=== PATIENT | female | born 1950 | race Caucasian/White ===

== ENCOUNTER 2019-06-26 15:40 | Emergency (ER) | payer OTHER ==
[~2019-06-26] VITALS: Ht 154.9 cm; Wt 117.9 kg
[2019-06-26 16:57] LABS: Basophils # (auto) 0 uL; Basophils % (auto) 0.7 % (0.0-2.0); Eosinophils # (auto) 0 uL; Eosinophils % (auto) 0.4 % (0.0-7.0); Hematocrit 42.5 % (36.0-46.0); Hemoglobin 13.7 g/dL (12.2-16.2); Lymphocytes # (auto) 1.3 uL; Lymphocytes % (auto) 24.9 % (10.0-50.0); Mean Corpuscular Hemoglobin 27.6 pg (28.0-32.0); Mean Corpuscular Hgb Conc. 32.3 g/dL (32.0-36.0); Mean Corpuscular Volume 85.5 fL (80.0-100.0); Monocytes # (auto) 0.8 uL; Monocytes % (auto) 14.2 % (0.0-12.0); Neutrophils # (auto) 3.2 uL; Neutrophils % (auto) 59.8 % (37.0-80.0); Nucleated Red Blood Cells % 0.1 %; Platelet Count (auto) 219 10^3/uL (140-450); Red Blood Cells 4.97 10^6/uL (4.0-5.20); Red Cell Distribution Width 17.5 % (11.8-14.3); White Blood Cell 5.4 10^3/uL (4.4-10.8)
[2019-06-26 17:17] LABS: Albumin 3.4 g/dL (3.4-5.0); Anion Gap 8 (5-15); Blood Urea Nitrogen 32 mg/dL (7-18); Calcium 9.8 mg/dL (8.5-10.1); Carbon Dioxide 27 mmol/L (21-32); Chloride 106 mmol/L (98-107); Glucose 136 mg/dL (74-106); Potassium 4.2 mmol/L (3.5-5.1); Sodium 141 mmol/L (136-145)
[2019-06-26 17:23] LABS: Alanine Aminotransferase 49 U/L (13-56); Alkaline Phosphatase 72 U/L (45-117); Aspartate Aminotransferase 53 U/L (15-37); BUN/Creatinine Ratio 22.2; Bilirubin, Total 0.3 mg/dL (0.2-1.0); GFR African American 47 mL/min; GFR Non-African American 39 mL/min; Total Protein 7.6 g/dL (6.4-8.2)
[2019-06-26 20:00] VITALS: BP 133/63
== END 2019-06-26 21:12 | disposition home or self-care (01) ==
LOC: ER 15:40
DX: J20.9 Acute bronchitis, unspecified (principal); E11.9 Type 2 diabetes mellitus without complications; I10 Essential (primary) hypertension
CPT/HCPCS: 36415; 71046; 80053; 84484; 85025; 85379; 87804; 93005

== ENCOUNTER 2024-09-03 13:20 | Inpatient (IN) | payer OTHER ==
[~2024-09-03] VITALS: Ht 154.9 cm; Wt 93.3 kg
--- NOTE | 2024-09-03 13:34 | ECG ---
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
[2024-09-03 14:26] LABS: Basophils # (auto) 0 10 ^3/uL (0-0.2); Basophils % (auto) 0.2 % (0.0-2.0); Eosinophils # (auto) 0.2 10 ^3/uL (0-0.8); Eosinophils % (auto) 1.7 % (0.0-7.0); Hematocrit 39.8 % (36.0-46.0); Hemoglobin 12.9 g/dL (12.2-16.2); Lymphocytes # (auto) 1.4 10 ^3/uL (0.4-5.4); Lymphocytes % (auto) 11.8 % (10.0-50.0); Mean Corpuscular Hemoglobin 28.5 pg (28.0-32.0); Mean Corpuscular Hgb Conc. 32.4 g/dL (32.0-36.0); Mean Corpuscular Volume 88.1 fL (80.0-100.0); Monocytes # (auto) 0.9 10 ^3/uL (0-1.3); Monocytes % (auto) 7.5 % (0.0-12.0); Neutrophils # (auto) 9.6 10 ^3/uL (1.6-8.6); Neutrophils % (auto) 78.8 % (37.0-80.0); Nucleated Red Blood Cells % 0.1 %; Platelet Count (auto) 276 10^3/uL (140-450); Red Blood Cells 4.51 10^6/uL (4.0-5.20); Red Cell Distribution Width 14.9 % (11.8-14.3); White Blood Cell 12.2 10^3/uL (4.4-10.8)
[2024-09-03 14:28] LABS: Potassium 4.5 mmol/L (3.5-5.1); Sodium 145 mmol/L (136-145)
[2024-09-03 14:29] LABS: Anion Gap 10 (5-15); Carbon Dioxide 23 mmol/L (20-31)
[2024-09-03 14:34] LABS: BUN/Creatinine Ratio 20.1 (10.0-20.0); Calcium 10.6 mg/dL (8.7-10.4); Chloride 112 mmol/L (98-107)
[2024-09-03 14:36] LABS: Blood Urea Nitrogen 27 mg/dL (9-23); Glucose 59 mg/dL (74-106)
--- NOTE | 2024-09-03 14:42 | DVH ---
INDICATION: cp TECHNIQUE: Frontal view of the chest. COMPARISON: None FINDINGS: . The heart and mediastinal contours are grossly unremarkable. There is no evidence of pleural disea se. The lungs are clear. The bony structures of the chest are intact without fracture. IMPRESSION: 1. No evidence of acute disease.
[2024-09-03 14:56] LABS: Urine Bacteria FEW /hpf (None Seen); Urine Blood Negative /uL (Negative); Urine Clarity Clear (Clear); Urine Color Colorless (Yellow); Urine Hyaline Cast FEW /lpf (0 - 2); Urine Protein, UAD Negative (Negative); Urine Specific Gravity 1.007 (1.001-1.035); Urine Squamous Epithelial Cell FEW /hpf (<5); Urine Urobilinogen Normal (Negative); Urine WBC 2 /HPF (0-5); Urine pH 6.5 (5.0-9.0)
--- NOTE | 2024-09-03 16:21 | ED.PDOC ---
History of Present Illness HPI Comments 74-year-old female brought in by family complaining of chest pain since around 11:00 a.m. today. Patient also notes that her blood pressure has been elevated despite taking her blood pressure medications. She states her blood pressure was 204 systolic today. She denies any shortness of breath, nausea, vomiting, diaphoresis, however she states that she does have chronic bilateral lower extremity edema which appears somewhat worse today. Vitals remarkable for BP 182/74 Exam remarkable for lower extremity edema Rhythm strip independently interpreted by me: Chief Complaint: Chest Pain Time Seen by MD: 15:30 Primary Care Provider: EMILIA Reviewed Notes: Nurses Notes, Medications, Allergies Allergies: Coded Allergies: Cephalosporins (Verified Allergy, Unknown, 09/03/24) Ciprofloxacin (Verified Allergy, Unknown, 09/03/24) Diphenhydramine (Verified Allergy, Unknown, 09/03/24) IV Iodine (Verified Allergy, Unknown, 09/03/24) IV Levofloxacin (Verified Allergy, Unknown, 09/03/24) Penicillins (Verified Allergy, Unknown, 09/03/24) Information Source: Patient Mode of Arrival: Ambulatory Severity: Moderate Timing: Hours Duration: Since onset, Hours Prehospital treatment: None Past Medical History PAST MEDICAL HISTORY: Cancer (Vaginal Cuff/Taking Chemo), DM, HTN Past Medical History (Other): 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 Surgical History: Hysterectomy (Total) Surgical History (Other): Cataract 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 History Family History Family History: Reviewed,noncontributory to illness Social History Smoker: Non-Smoker Alcohol: Denies ETOH Use Drugs: Denies Drug Use Lives In: Home Constitutional: reports: others (high Blood Pressure); denies: chills, diaphoresis, fatigue, fever, malaise, sweats, weakness EENTM: denies: blurred vision, double vision, ear bleeding, ear discharge, ear drainage, ear pain, ear ringing, eye pain, eye redness, hearing loss, mouth pain, mouth swelling, nasal discharge, nose bleeding, nose congestion, nose pain, photophobia, tearing, throat pain, throat swelling, voice changes, others Respiratory: denies: cough, hemoptysis, orthopnea, SOB at rest, shortness of breath, SOB with excertion, stridor, wheezing, others Cardiovascular: reports: edema; denies: chest pain, dizzy spells, diaphoresis, Dyspnea on exertion, irregular heart beat, left arm pain, lightheadedness, palpitations, PND, syncope, others Gastrointestinal: denies: abdomen distended, abdominal pain, blood streaked bowels, constipated, diarrhea, dysphagia, difficulty swallowing, hematemesis, melena, nausea, poor appetite, poor fluid intake, rectal bleeding, rectal pain, vomiting, others Genitourinary: denies: abnormal vagina bleeding, burning, dyspareunia, dysuria, flank pain, frequency, hematuria, incontinence, pain, , vagina discharge, urgency, others Neurological: denies: dizziness, fainting, headache, left sided numbness, left sided weakness, numbness, paresthesia, pre-existing deficit, right sided numbness, right sided weakness, seizure, speech problems, tingling, tremors, weakness, others Musculoskeletal: denies: back pain, gout, joint pain, joint swelling, muscle pain, muscle stiffness, neck pain, others Integumetry: denies: bruises, change in color, change in hair/nails, dryness, laceration, lesions, lumps, rash, wounds, others Allergic/Immunocompromised: denies: Difficulty Healing, Frequent Infections, Hives, Itching, others Hematologic/Lymphatic: denies: anemia, blood clots, easy bleeding, easy bruising, swollen glands, others Endocrine: denies: excessive hunger, excessive sweating, excessive thirst, excessive urination, flushing, intolerance to cold, intolerance to heat, unexplained weight gain, unexplained weight loss, others Psychiatric: denies: anxiety, bipolar disorder, depression, hopeless, panic disorder, schizophrenia, sleepless, suicidal, others All Other Systems: Reviewed and Negative Physical Exam General Appearance: No Apparent Distress, Obese HEENT: Other (Pupils and face symmetric. Moist mucous membranes.) Neck: Full Range of Motion, Normal Inspection Respiratory: Decreased Breath Sounds, No Accessory Muscle Use, No Respiratory Distress Cardiovascular: No JVD, Regular Rate/Rhythm Breast Exam: Deferred Gastrointestinal: Non Tender, Soft Genitalia: Deferred Pelvic: Deferred Rectal: Deferred Extremities: Leg edema, Normal range of motion, Pedal edema Neurologic: Alert (Oriented x4), Normal Affect, Normal Mood, Other (Moves all extremities) Cerebellar Function: NOT DONE Reflexes: NOT DONE Skin: Dry, Normal Color, Warm Lymphatic: NOT DONE Was a procedure done? Was a procedure done?: No EKG EKG : Comments Sinus rhythm, rate 75, normal intervals, left axis deviation, possible old inferior infarct, nonspecific T change. Differential Dx Considerations may include: ACS, NV, PE, chest wall pain, anxiety, pneumonia or respiratory infection, among others X-Ray, Labs, Meds, VS Vital Signs Date Time Temp Pulse Resp B/P (MAP) Pulse Ox O2 Delivery O2 Flow Rate FiO2 09/03/24 20:29 199/90 09/03/24 19:17 75 18 98 Room Air* 0 21 09/03/24 19:17 72 16 200/88 (125) 98 09/03/24 18:59 198/96 09/03/24 17:05 189/84 09/03/24 14:28 75 09/03/24 13:28 71 09/03/24 13:26 97.5 70 18 182/74 (110) 98 97.5 Lab Test 09/03/24 20:44 09/03/24 14:38 09/03/24 13:26 Range/Units POC Glucose 62 L 70-106 mg/dl Urine Color Colorless Yellow Urine Clarity Clear Clear Urine pH 6.5 5.0-9.0 Urine Specific [place] 1.007 1.001-1.035 Urine Protein Negative Negative Urine Ketones Negative Negative Urine Blood Negative Negative /uL Urine Nitrite Negative Negative Urine Bilirubin Negative Negative Urine Urobilinogen Normal Negative mg/dL Urine Leukocyte Esterase Trace Negative /uL Urine RBC 3 0 - 4 /hpf Urine Microscopic WBC 2 0-5 /HPF Urine Squamous Epithelial Cells Few <5 /hpf Urine Bacteria Few H None Seen /hpf Urine Hyaline Casts Few 0 - 2 /lpf Urine Glucose Normal Normal mg/dL White Blood Count 12.2 H 4.4-10.8 10^3/uL Red Blood Count 4.51 4.0-5.20 10^6/uL Hemoglobin 12.9 12.2-16.2 g/dL Hematocrit 39.8 36.0-46.0 % Mean Corpuscular Volume 88.1 80.0-100.0 fL Mean Corpuscular Hemoglobin 28.5 28.0-32.0 pg Mean Corpuscular Hemoglobin Concent 32.4 32.0-36.0 g/dL Red Cell Distribution Width 14.9 H 11.8-14.3 % Platelet Count 276 140-450 10^3/uL Mean Platelet Volume 8.2 6.9-10.8 fL Neutrophils (%) (Auto) 78.8 37.0-80.0 % Lymphocytes (%) (Auto) 11.8 10.0-50.0 % Monocytes (%) (Auto) 7.5 0.0-12.0 % Eosinophils (%) (Auto) 1.7 0.0-7.0 % Basophils (%) (Auto) 0.2 0.0-2.0 % Neutrophils # (Auto) 9.6 H 1.6-8.6 10 ^3/uL Lymphocytes # (Auto) 1.4 0.4-5.4 10 ^3/uL Monocytes # (Auto) 0.9 0-1.3 10 ^3/uL Eosinophils # (Auto) 0.2 0-0.8 10 ^3/uL Basophils # (Auto) 0 0-0.2 10 ^3/uL Nucleated Red Blood Cells 0.1 % D-Dimer, Quantitative 0.81 H 0.0-0.49 mg/L FEU Sodium Level 145 136-145 mmol/L Potassium Level 4.5 3.5-5.1 mmol/L Chloride Level 112 H 98-107 mmol/L Carbon Dioxide Level 23 20-31 mmol/L Anion Gap 10 5-15 Blood Urea Nitrogen 27 H 9-23 mg/dL Creatinine 1.34 H 0.550-1.02 mg/dL Glomerular Filtration Rate Calc 42 >90 mL/min BUN/Creatinine Ratio 20.1 H 10.0-20.0 Serum Glucose 59 L 74-106 mg/dL Calcium Level 10.6 H 8.7-10.4 mg/dL Troponin I High Sensitivity 4 </=34 ng/L B-Type Natriuretic Peptide 134.20 0-100 pg/mL Current Medications Medications (Trade) Dose Ordered Sig/Luigi Route Start Time Stop Time Status Last Admin Aspirin 325 mg ONCE ONCE PO 09/03/24 15:30 09/03/24 15:31 DC 09/03/24 17:05 Nitroglycerin (Nitrodur 0.2MG/ Hr) 1 patch ONCE ONCE TD 09/03/24 15:30 09/03/24 15:31 DC 09/03/24 17:05 Hydralazine HCl (Apresoline Injection) 10 mg ONCE ONCE IV 09/03/24 19:30 09/03/24 20:00 DC 09/03/24 20:29 PROCEDURE(s): BLDVT - BiLat Lower DVT REASON: ble edema ORDER NUMBER(s): [id number], ACCESSION NUMBER(s): [id number] Bilateral lower extremity venous duplex Clinical History: ble edema Comparison: None Technique: Duplex Doppler evaluation of the deep venous systems of both lower extremities from the common femoral veins to the popliteal veins including color Doppler and spectral/pulsed waveform analysis was performed. Findings: RIGHT SIDE: The common femoral vein demonstrates appropriate compressibility and waveform variability. There is compressibility/patency of the great saphenous vein at the proximal thigh. The femoral vein demonstrates appropriate compressibility and waveform variability. The deep femoral vein demonstrates appropriate compressibility and waveform variability. The popliteal vein demonstrates appropriate compressibility and waveform variability. There is color flow at the tibioperoneal trunk and in the posterior tibial vein. LEFT SIDE: The common femoral vein demonstrates appropriate compressibility and waveform variability. There is compressibility/patency of the great saphenous vein at the proximal thigh. The femoral vein demonstrates appropriate compressibility and waveform variability. The deep femoral vein demonstrates appropriate compressibility and waveform variability. The popliteal vein demonstrates appropriate compressibility and waveform va riability. There is color flow at the tibioperoneal trunk and in the posterior tibial vein. Impression: 1. No right or left femoropopliteal venous thrombosis. EDURE(s): CXRP - CHEST PORTABLE REASON: cp ORDER NUMBER(s): [id number], ACCESSION NUMBER(s): [id number] INDICATION: cp TECHNIQUE: Frontal view of the chest. COMPARISON: None FINDINGS: . The heart and mediastinal contours are grossly unremarkable. There is no evidence of pleural disease. The lungs are clear. The bony structures of the chest are intact without fracture. IMPRESSION: 1. No evidence of acute disease. X-Ray, Labs, Meds, VS Comment 74-year-old female brought in by family complaining of chest pain since around 11:00 a.m. today. Patient also notes that her blood pressure has been elevated despite taking her blood pressure medications. She states her blood pressure was 204 systolic today. She denies any shortness of breath, nausea, vomiting, diaphoresis, however she states that she does have chronic bilateral lower extremity edema which appears somewhat worse today. Vitals remarkable for BP 182/74 Exam remarkable for lower extremity edema Rhythm strip independently interpreted by me: Sinus rhythm, rate 75, no ectopy. Chest x-ray IMPRESSION: 1. No evidence of acute disease. Bilateral lower extremity ultrasound: Impression: 1. No right or left femoropopliteal venous thrombosis. CBC remarkable for WBC 12.2, metabolic panel remarkable for BUN 27, creatinine 1.34, glucose 59, BNP 134.2, troponin negative x2, D-dimer 0.81 Patient treated with the following in the ED: Aspirin 325 mg p.o., nitro patch transdermal, hydralazine 10 mg IV On re-evaluation after aspirin and nitro, the patient stated symptoms are improving, however blood pressure actually increased to 200/88 Differential includes ACS and PE. Patient states she is allergic to iodinated contrast, so plan is to admit the patient for blood pressure control and V/Q scan to rule out PE. Case discussed with SUKHDEV Palmer, who will evaluate and admit the patient. Time of 1ST Reevaluation: 16:00 Reevaluation 1ST: Unchanged Patient Education/Counseling: Diagnosis, Treatment, Prognosis Family Education/Counseling: No Family Present Departure 1 Departure Time of Disposition: 19:38 Impression: Primary Impression: Chest pain with high risk for cardiac etiology Additional Impressions: Hypertensive urgency Elevated d-dimer Disposition: 09 ADMITTED INPATIENT Admit to: Tele Condition: Guarded Critical Care Note Critical Care Time?: No Stability Stability form required: No Heart Score Heart Score: Heart Score Response (Comments) Value History Moderate Suspicious 1 EKG Repolarization Disturb 1 Age >65 2 Risk Factors 1 or 2 risk factors 1 Troponin Normal limit 0 Total 5 I personally scribed for INDRA STEPHENS MD ([email or web address]) on 09/03/24 at 16:21. Electronically submitted by Fitz Marie ([email or web address]). I personally scribed for INDRA STEPHENS MD ([email or web address]) on 09/03/24 at 17:27. Electronically submitted by Fitz Marie ([email or web address]). INDRA STEPHENS MD Sep 03, 2024 16:21
--- NOTE | 2024-09-03 16:31 | DVH ---
Bilateral lower extremity venous duplex Clinical History: ble edema Comparison: None Technique: Duplex Doppler evaluation of the deep venous systems of both lower extremities from the co mmon femoral veins to the popliteal veins including color Doppler and spectral/pulsed waveform analys is was performed. Findings: RIGHT SIDE: The common femoral vein demonstrates appropriate compressibility and waveform variability. There is compressibility/patency of the great saphenous vein at the proximal thigh. The femoral vein demonstrates appropriate compressibility and waveform variability. The deep femoral vein demonstrates appropriate compressibility and waveform variability. The popliteal vein demonstrates appropriate compressibility and waveform variability. There is color flow at the tibioperoneal trunk and in the posterior tibial vein. LEFT SIDE: The common femoral vein demonstrates appropriate compressibility and waveform variability. There is compressibility/patency of the great saphenous vein at the proximal thigh. The femoral vein demonstrates appropriate compressibility and waveform variability. The deep femoral vein demonstrates appropriate compressibility and waveform variability. The popliteal vein demonstrates appropriate compressibility and waveform variability. There is color flow at the tibioperoneal trunk and in the posterior tibial vein. Impression: 1. No right or left femoropopliteal venous thrombosis.
[2024-09-03] MEDS: ASPirin 325 MG TAB PO ONE (17:05)
[2024-09-03] MEDS: NITROGLYCERIN 0.2MG/HR TOPICAL PATCH TD ONE (17:05)
[2024-09-03 19:17] VITALS: PULSE 75; RESP 18; O2SAT 98
[2024-09-03] MEDS: hydrALAZINE HCL 20 MG/ML VL ONE (20:29)
[2024-09-03] MEDS: hydrALAZINE HCL 20 MG/ML VL IV ONE (20:29)
[2024-09-03] MEDS ORDERED: HYDROcodone-ACET 5/325MG TAB PO PRN (22:30)
[2024-09-03] MEDS ORDERED: MORPHINE SULFATE INJ 2 MG/ml SYRG IV PRN (22:30)
[2024-09-03] MEDS ORDERED: DEXTROSE (50%) 50ML SYRG IV PRN (22:30)
[2024-09-03] MEDS ORDERED: ONDANSETRON HCL 4 MG/2 ML VIAL IV PRN (22:30)
[2024-09-03] MEDS ORDERED: NITROGLYCERIN 0.4 MG SL TAB SL PRN (22:30)
[2024-09-03] MEDS ORDERED: cloNIDine HCL 0.1 MG TAB PO PRN (22:30)
[2024-09-03 23:14] VITALS: PULSE 78; RESP 18; O2SAT 98
[2024-09-04] VITALS (9 sets, daily range): BP systolic 143–176; BP diastolic 60–79; PULSE 77–96; RESP 16–18; TEMP 97.6–98.6; O2SAT 92–98
--- NOTE | 2024-09-04 03:12 | DVHHP2 ---
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 Patient endorses leg swelling began after she started chemotherapy. There are no associated factors with chest pain. On arrival to the emergency department patient is noted to be hypertensive with blood pressure as high as 200/88. Patient endorses that she was recently taken off hydrochlorothiazide due to bladder urgency, and her blood pressure has been difficult to manage. During the emergency department evaluation D-dimer is elevated at 0.81. However is unable to complete a CT angio of the chest rule out PE due to the patient's allergy to contrast iodine. At this time patient denies fevers, chills, shortness of breath, nausea, vomiting. Cardiovascular: HTN Heme/Onc: Cancer Endocrine: Diabetes Smoke: No ALCOHOL: none Drugs: None Lives: with Family Review of Systems Constitutional: No: Fever, Chills, Sweats, Weakness, Malaise, Other Eyes: No: Pain, Vision change, Conjunctivae inflammation, Eyelid inflammation, Other, Redness ENT: No: Ear pain, Ear discharge, Nose pain, Nose discharge, Nose congestion, Mouth pain, Mouth swelling, Throat pain, Throat swelling, Other Respiratory: No: Cough, Dry, Shortness of breath, SOB with excertion, Wheezing, Hemoptysis, Pleuritic Pain, Sputum, Wheezing, Other Cardiovascular: Chest Pain, Edema; No: Palpitations, Orthopnea, Paroxysmal Noc. Dyspnea, Lt Headedness, Other Gastrointestinal: No: Nausea, Vomiting, Abdominal Pain, Diarrhea, Constipation, Melena, Hematochezia, Other Genitourinary: No Dysuria, No Frequency, No Incontinence, No Hematuria, No Retention, No Other Musculoskeletal: No: other, neck pain, shoulder pain, arm pain, back pain, hand pain, leg pain, foot pain Skin: No: Rash, Lesions, Jaundice, Bruising, Other Neurological: No: Weakness, Numbness, Incoordination, Change in speech, Confusion, Seizures, Other Allergies: Coded Allergies: Ceftriaxone (Verified Allergy, Unknown, 09/04/24) Cephalosporins (Verified Allergy, Unknown, 09/03/24) Ciprofloxacin (Verified Allergy, Unknown, 09/03/24) Diphenhydramine (Verified Allergy, Unknown, 09/03/24) IV Iodine (Verified Allergy, Unknown, 09/03/24) IV Levofloxacin (Verified Allergy, Unknown, 09/03/24) Penicillins (Verified Allergy, Unknown, 09/03/24) Uncoded Allergies: LUBRICATE (Adverse Reaction, Severe, 09/03/24) ALLERGY TO ULTRASOUND LUBRICATING JELLY Medications Current Medications Medications Dose Ordered Sig/Luigi Route Start Time Stop Time Status Last Admin Dose Admin Acetaminophen 650 mg Q6HP PRN PO 09/03/24 22:30 Acetaminophen/ Hydrocodone Bitart 1 tab Q4HP PRN PO 09/03/24 22:30 Ondansetron HCl 4 mg Q4HP PRN IV 09/03/24 22:30 Enoxaparin Sodium 40 mg DAILY SC 09/04/24 10:00 Nitroglycerin 0.4 mg Q5MINP PRN SL 09/03/24 22:30 Morphine Sulfate 2 mg Q30M PRN IV 09/03/24 22:30 Clonidine HCl 0.1 mg TIDPRN PRN PO 09/03/24 22:30 Hydralazine HCl 10 mg Q4HPRN PRN IV 09/03/24 22:30 Aspirin 81 mg DAILY PO 09/04/24 10:00 Atorvastatin Calcium 10 mg HS PO 09/04/24 22:00 Diagnostic Test (Pha) 1 strip ACHS 09/04/24 07:00 Insulin Human Regular ACHS SC 09/04/24 07:00 Dextrose 50 ml UD PRN IV 09/03/24 22:30 Metoprolol Tartrate 25 mg BID PO 09/04/24 10:00 Exam Vital Signs Vital Signs Date Time Temp Pulse Resp B/P (MAP) Pulse Ox O2 Delivery O2 Flow Rate FiO2 09/04/24 00:00 75 09/03/24 23:14 98.2 18 166/84 (111) 98 98.2 09/03/24 23:14 Room Air* 0 21 General Appearance: Alert, Oriented X3, Cooperative, mild distress HEENT: Atraumatic, PERRLA, EOMI Respiratory: Clear to auscultation, Normal air movement Cardiovascular: Regular rate, Normal S1, Normal S2 Abdominal: Normal bowel sounds, Soft, No tenderness Extremities: No clubbing, No cyanosis, Other (BLE edema) Neuro: Normal speech Psych/Mental Status: Mental status NL, Mood NL Labs/Xrays Labs Test 09/03/24 23:19 09/03/24 14:38 09/03/24 13:26 Range/Units POC Glucose 79 70-106 mg/dl Urine Color Colorless Yellow Urine Clarity Clear Clear Urine pH 6.5 5.0-9.0 Urine Specific [place] 1.007 1.001-1.035 Urine Protein Negative Negative Urine Ketones Negative Negative Urine Blood Negative Negative /uL Urine Nitrite Negative Negative Urine Bilirubin Negative Negative Urine Urobilinogen Normal Negative mg/dL Urine Leukocyte Esterase Trace Negative /uL Urine RBC 3 0 - 4 /hpf Urine Microscopic WBC 2 0-5 /HPF Urine Squamous Epithelial Cells Few <5 /hpf Urine Bacteria Few H None Seen /hpf Urine Hyaline Casts Few 0 - 2 /lpf Urine Glucose Normal Normal mg/dL White Blood Count 12.2 H 4.4-10.8 10^3/uL Red Blood Count 4.51 4.0-5.20 10^6/uL Hemoglobin 12.9 12.2-16.2 g/dL Hematocrit 39.8 36.0-46.0 % Mean Corpuscular Volume 88.1 80.0-100.0 fL Mean Corpuscular Hemoglobin 28.5 28.0-32.0 pg Mean Corpuscular Hemoglobin Concent 32.4 32.0-36.0 g/dL Red Cell Distribution Width 14.9 H 11.8-14.3 % Platelet Count 276 140-450 10^3/uL Mean Platelet Volume 8.2 6.9-10.8 fL Neutrophils (%) (Auto) 78.8 37.0-80.0 % Lymphocytes (%) (Auto) 11.8 10.0-50.0 % Monocytes (%) (Auto) 7.5 0.0-12.0 % Eosinophils (%) (Auto) 1.7 0.0-7.0 % Basophils (%) (Auto) 0.2 0.0-2.0 % Neutrophils # (Auto) 9.6 H 1.6-8.6 10 ^3/uL Lymphocytes # (Auto) 1.4 0.4-5.4 10 ^3/uL Monocytes # (Auto) 0.9 0-1.3 10 ^3/uL Eosinophils # (Auto) 0.2 0-0.8 10 ^3/uL Basophils # (Auto) 0 0-0.2 10 ^3/uL Nucleated Red Blood Cells 0.1 % D-Dimer, Quantitative 0.81 H 0.0-0.49 mg/L FEU Sodium Level 145 136-145 mmol/L Potassium Level 4.5 3.5-5.1 mmol/L Chloride Level 112 H 98-107 mmol/L Carbon Dioxide Level 23 20-31 mmol/L Anion Gap 10 5-15 Blood Urea Nitrogen 27 H 9-23 mg/dL Creatinine 1.34 H 0.550-1.02 mg/dL Glomerular Filtration Rate Calc 42 >90 mL/min BUN/Creatinine Ratio 20.1 H 10.0-20.0 Serum Glucose 59 L 74-106 mg/dL Calcium Level 10.6 H 8.7-10.4 mg/dL Troponin I High Sensitivity 4 </=34 ng/L B-Type Natriuretic Peptide 134.20 0-100 pg/mL Assessment/Plan Assessment/Plan Chest pain Uncontrolled hypertension Elevated D dimer DM Hx Vaginal Cancer under chemo and radiation therapy Plan Admit to telemetry Consult cardiology. Echocardiogram. Continue home medication. As needed and hypertensive for optimal BP management. repeat troponin. V/Q scan due to iodine allergy to r/o PE Blood glucose check with regular insulin lighting scale coverage. Supportive care. Patient to follow up with outpatient oncology for continue treatment. GI ppx protonix / DVT ppx lovenox Plan discussed with: Patient My Orders Orders - GRISELDA BOONE NP Procedure Category Date Status Time Admit ADMIT 09/03/24 Transmitted 22:22 Code Status CODE 09/03/24 Transmitted 22:22 Vital Signs DONNA 09/03/24 In Process 22:22 Review Orders With DONNA 09/03/24 In Process Adm. 22:22 Encourage Activity As DONNA 09/03/24 In Process Tolerate 22:22 Consistent DIET 09/04/24 Transmitted Carb(Ccho)Diabetes Breakfast Oxygen By Face Mask RT 09/03/24 Transmitted 22:22 Acetaminophen Tablet PHA 09/03/24 In Process (Tylenol Tablet) 22:30 Notify Of Changes DONNA 09/03/24 In Process From Base 22:22 Advance Directive DONNA 09/03/24 In Process 22:22 Echo 2d Mode Cardiac US 09/03/24 Logged DOP 22:22 Basic Metabolic Panel LAB 09/04/24 Logged 05:00 Basic Metabolic Panel LAB 09/05/24 Verified 05:00 Basic Metabolic Panel LAB 09/06/24 Verified 05:00 Basic Metabolic Panel LAB 09/07/24 Verified 05:00 Basic Metabolic Panel LAB 09/08/24 Verified 05:00 Complete Blood Count LAB 09/04/24 Logged 05:00 Complete Blood Count LAB 09/05/24 Verified 05:00 Complete Blood Count LAB 09/06/24 Verified 05:00 Complete Blood Count LAB 09/07/24 Verified 05:00 Complete Blood Count LAB 09/08/24 Verified 05:00 Patient Condition ORDERS 09/03/24 Transmitted 22:22 Allergies DONNA 09/03/24 In Process 22:22 Hydrocodone-Acet PHA 09/03/24 In Process 5/325mg Tab ([place] 22:30 Ondansetron Hcl PHA 09/03/24 In Process (Zofran) 22:30 Enoxaparin Sodium PHA 09/04/24 In Process (Lovenox) 10:00 Sequential DONNA 09/03/24 In Process Compression Device Nitroglycerin PHA 09/03/24 In Process Sublingual (Ntrostat 22:30 Morphine Sulfate PHA 09/03/24 In Process Injection 22:30 Stat Ekg For Chest DONNA 09/03/24 In Process Pain 22:22 Notify Of Changes DONNA 09/03/24 In Process From Base 22:22 Rotoprinter For DONNA 09/03/24 In Process 24 Hours 22:22 Emergency Dysrhythmia DONNA 09/03/24 In Process Protocol 22:22 Rhythm Strips Once DONNA 09/03/24 In Process Every Shift 22:22 Oxygen By Nasal RT 09/03/24 Transmitted Cannula 22:22 Clonidine Hcl Tablet PHA 09/03/24 In Process (Catapres Tablet) 22:30 Hydralazine Injection PHA 09/03/24 In Process (Apresoline Inject 22:30 * Cardiology Consult CONS 09/03/24 Transmitted 22:22 Aspirin Tablet PHA 09/04/24 In Process 10:00 Atorvastatin (Lipitor) PHA 09/04/24 In Process 22:00 Glucose Blood PHA 09/04/24 In Process (Accu-Chek Comfort 07:00 Insulin R (Human) PHA 09/04/24 In Process (Insulin R) 07:00 Dextrose 50% Syringe PHA 09/03/24 In Process 22:30 Metoprolol Tartrate PHA 09/04/24 In Process Tablet (Lopressor Ta 10:00 Date of Service: September 04, 2024 Billing Provider: JOSE JUNG MD Common Visit Codes: NOT BILLABLE (At the chest pain with elevated) JOSE JUNG MD 09/04/24 1519: Review of Systems Allergies: Coded Allergies: Ceftriaxone (Verified Allergy, Unknown, 09/04/24) Cephalosporins (Verified Allergy, Unknown, 09/03/24) Ciprofloxacin (Verified Allergy, Unknown, 09/03/24) Diphenhydramine (Verified Allergy, Unknown, 09/03/24) IV Iodine (Verified Allergy, Unknown, 09/03/24) IV Levofloxacin (Verified Allergy, Unknown, 09/03/24) Penicillins (Verified Allergy, Unknown, 09/03/24) Uncoded Allergies: LUBRICATE (Adverse Reaction, Severe, 09/03/24) ALLERGY TO ULTRASOUND LUBRICATING JELLY Assessment/Plan Assessment/Plan Patient's chart is reviewed and discussed with the nurse practitioner. Patient is evaluated by Cardiology today. I agree with the nurse practitioner's evaluation, documentation, assessment and care plan as outlined. GRISELDA BOONE NP September 04, 2024 03:12 JOSE JUNG MD September 04, 2024 15:19
[2024-09-04] MEDS: InsuLIN REG 1unit/0.01ml Soln (100units/ml) SC SCH (05:57)
[2024-09-04] MEDS: ACCU-CHEK COMFORT CURVE STRIP VI SCH (05:58)
[2024-09-04] MEDS: ACETAMINOPHEN 325 MG TAB PO PRN (06:05)
[2024-09-04] MEDS: hydrALAZINE HCL 20 MG/ML VL IV PRN (06:47)
[2024-09-04] MEDS ORDERED: GLIP5TAB21 PO (07:36)
[2024-09-04] MEDS ORDERED: SEMA2INJ3 SC (07:36)
[2024-09-04 08:36] LABS: Basophils # (auto) 0 10 ^3/uL (0-0.2); Basophils % (auto) 0.1 % (0.0-2.0); Eosinophils # (auto) 0.1 10 ^3/uL (0-0.8); Eosinophils % (auto) 1.5 % (0.0-7.0); Hematocrit 36.4 % (36.0-46.0); Hemoglobin 12.2 g/dL (12.2-16.2); Mean Corpuscular Hemoglobin 29.2 pg (28.0-32.0); Mean Corpuscular Hgb Conc. 33.4 g/dL (32.0-36.0); Mean Corpuscular Volume 87.2 fL (80.0-100.0); Monocytes # (auto) 0.9 10 ^3/uL (0-1.3); Monocytes % (auto) 8.6 % (0.0-12.0); Neutrophils % (auto) 79.8 % (37.0-80.0); Platelet Count (auto) 240 10^3/uL (140-450); Red Blood Cells 4.18 10^6/uL (4.0-5.20); Red Cell Distribution Width 14.9 % (11.8-14.3)
[2024-09-04 08:42] LABS: Potassium 4.1 mmol/L (3.5-5.1)
[2024-09-04 08:43] LABS: Anion Gap 6 (5-15); Carbon Dioxide 28 mmol/L (20-31)
[2024-09-04 08:44] LABS: Calcium 10.4 mg/dL (8.7-10.4)
[2024-09-04 08:45] LABS: Chloride 112 mmol/L (98-107); Sodium 146 mmol/L (136-145)
[2024-09-04 08:48] LABS: BUN/Creatinine Ratio 17.3 (10.0-20.0); Blood Urea Nitrogen 23 mg/dL (9-23)
[2024-09-04 08:51] LABS: Glucose 110 mg/dL (74-106)
[2024-09-04] MEDS: ENOXAPARIN SOD 40 MG/0.4 ML SYRINGE SC SCH (09:25)
[2024-09-04] MEDS: METOPROLOL TARTRATE 25 MG TAB PO SCH (09:25)
[2024-09-04] MEDS: ASPirin 81 mg TAB PO SCH (09:25)
--- NOTE | 2024-09-04 11:54 | DVH ---
NUCLEAR MEDICINE VENTILATION/PERFUSION LUNG SCAN. INDICATION: PULMONARY EMBOLISM COMPARISON: None TECHNIQUE: Following intravenous demonstration of 6 millicuries of technetium 99m MAA, and inhalati on of 40 mCi of Xe 133 scintigrams were obtained in multiple projections of the lungs. FINDINGS: There is normal uptake of radionuclide on both the ventilation and perfusion portions of the examinat ion. No mismatched perfusion defects are demonstrated. Uptake is normally homogeneous. IMPRESSION: Low probability for PE.
--- NOTE | 2024-09-04 14:04 | DVHINCON2 ---
Date Seen: September 04, 2024 Referring Physician SUKHDEV Palmer Reason for Consultation Chest pain History of Present Illness This is a 76-year-old female patient who presents to the emergency room with chief complaint of chest pain that began yesterday. The patient reports that at approximately 11:00 a.m. yesterday she was sitting at home and suddenly began to feel a heaviness in her chest. She describes it as unprovoked, constant, heavy in nature, and generalized throughout her chest. She also reports a headache. The patient states that she went to check her blood pressure and noticed that the systolic reading was over 200 mmHg. She decided to come to the emergency room for further evaluation. Initial twelve lead electrocardiogram reveals normal sinus rhythm with left ventricular hypertrophy. Initial troponin level of 4ng/L. Significant past medical history includes hypertension, dyslipidemia, type 2 diabetes mellitus, endometrial cancer in 1992 status post total abdominal hysterectomy, current vaginal cuff cancer undergoing chemotherapy and radiation, and morbid obesity. Of note, the patient came in with a blood pressure reaching as high as 200/88. She reports a recent change in her antihypertensive medication approximately two months ago. It was mentioned that her primary physician reportedly took her off of her thiazide diuretic because she was experiencing severe urinary incontinence. She states that since this recent change, she has had labile blood pressures and has had difficulty controlling her blood pressure. She reports that her primary doctor is on a emergency leave of absence and she has been unable to follow up with a primary care physician. Past Medical History Past medical history reviewed. No other significant than mentioned above. Past Surgical History Endometrial cancer in 1992 status post total abdominal hysterectomy Tubal ligation Right shoulder arthroscopy Family History: Diabetes mellitus G8 MOTHER G8 FATHER FH: cancer G8 BROTHER Family History Family history reviewed. Social History Denies the use of tobacco, alcohol or illicit drugs. Allergies: Coded Allergies: Ceftriaxone (Verified Allergy, Unknown, 09/04/24) Cephalosporins (Verified Allergy, Unknown, 09/03/24) Ciprofloxacin (Verified Allergy, Unknown, 09/03/24) Diphenhydramine (Verified Allergy, Unknown, 09/03/24) IV Iodine (Verified Allergy, Unknown, 09/03/24) IV Levofloxacin (Verified Allergy, Unknown, 09/03/24) Penicillins (Verified Allergy, Unknown, 09/03/24) Uncoded Allergies: LUBRICATE (Adverse Reaction, Severe, 09/03/24) ALLERGY TO ULTRASOUND LUBRICATING JELLY Home Meds Reported Medications Semaglutide (Ozempic) 2 Mg/3 Ml Inj, 2 MG SC QWEEKLY, INJ 09/04/24 Glipizide (Glipizide) 5 Mg Tab, 7.5 MG PO, TAB 09/04/24 Home Meds Home medications reviewed. Current Medications Current Medications Medications (Trade) Dose Ordered Sig/Luigi Route PRN Reason Start Time Stop Time Status Last Admin Acetaminophen (Tylenol Tablet) 650 mg Q6HP PRN PO PAIN SCALE 1-3 OR TEMP>100.4 09/03/24 22:30 09/04/24 06:05 Acetaminophen/ Hydrocodone Bitart ([place] 5/325MG Tab) 1 tab Q4HP PRN PO MODERATE PAIN (4-6 PAIN SCALE) 09/03/24 22:30 Ondansetron HCl (Zofran) 4 mg Q4HP PRN IV NAUSEA / VOMITING 09/03/24 22:30 Enoxaparin Sodium (Lovenox) 40 mg DAILY SC 09/04/24 10:00 09/04/24 09:25 Nitroglycerin (Ntrostat Sublingual) 0.4 mg Q5MINP PRN SL FOR CHEST PAIN 09/03/24 22:30 Morphine Sulfate 2 mg Q30M PRN IV FOR CHEST PAIN 09/03/24 22:30 Clonidine HCl (Catapres Tablet) 0.1 mg TIDPRN PRN PO SBP > 180 09/03/24 22:30 Hydralazine HCl (Apresoline Injection) 10 mg Q4HPRN PRN IV SBP > 160 09/03/24 22:30 09/04/24 11:45 Aspirin 81 mg DAILY PO 09/04/24 10:00 09/04/24 09:25 Atorvastatin Calcium (Lipitor) 10 mg HS PO 09/04/24 22:00 Diagnostic Test (Pha) (Accu-Chek Comfort Curve T) 1 strip ACHS 09/04/24 07:00 09/04/24 11:44 Insulin Human Regular (InsuLIN R) ACHS SC 09/04/24 07:00 Dextrose 50 ml UD PRN IV Blood Sugar LESS THAN 60 09/03/24 22:30 Metoprolol Tartrate (Lopressor Tablet) 25 mg BID PO 09/04/24 10:00 09/04/24 09:25 Review of Systems Constitutional: No symptom reported Ears, Nose, & Throat: No symptom reported Eyes: No symptom reported Neurological: Headache Pulmonary/Respiratory: No symptoms reported Cardiovascular: Chest pain Gastrointestinal: No symptom reported Genitourinary: No symptom reported Musculoskeletal: No symptom reported Skin: No symptom reported Psychiatric: No symptom reported Endocrine: No symptom reported Hematologic/Lymphatic: No symptom reported Vital Signs Vital Signs Date Time Temp Pulse Resp B/P (MAP) Pulse Ox O2 Delivery O2 Flow Rate FiO2 09/04/24 11:45 164/79 09/04/24 09:21 97.6 78 18 95 97.6 09/04/24 08:00 Nasal Cannula* 2 28 Physical Exam General Appearance: Cooperative. Morbidly obese Pulmonary/Respiratory: Clear, bilateral breaths sounds. Cardiovascular/Chest: Regular rate and rhythm. Peripheral Pulses: 2+ Radial (R). 2+ Radial (L). 2+ Pedal (R). 2+ Pedal (L) Abdominal Exam: Normal bowel sounds. Ankle Exam: Negative ankle edema Lower extremities: Negative lower extremity edema Neuro/Mental Status: A/OX4, coherent. Thoughts/Psych: Normal thought pattern. Appropriate mood and affect. Good judgment and insight. Appearance: No acute distress. Skin Exam: Normal inspection. Normal color. Warm and dry. Labs/Diagnostic Data Labs Test 09/04/24 11:49 09/04/24 08:21 09/03/24 14:38 09/03/24 13:26 Range/Units POC Glucose 73 70-106 mg/dl White Blood Count 10.0 4.4-10.8 10^3/uL Red Blood Count 4.18 4.0-5.20 10^6/uL Hemoglobin 12.2 12.2-16.2 g/dL Hematocrit 36.4 36.0-46.0 % Mean Corpuscular Volume 87.2 80.0-100.0 fL Mean Corpuscular Hemoglobin 29.2 28.0-32.0 pg Mean Corpuscular Hemoglobin Concent 33.4 32.0-36.0 g/dL Red Cell Distribution Width 14.9 H 11.8-14.3 % Platelet Count 240 140-450 10^3/uL Mean Platelet Volume 8.1 6.9-10.8 fL Neutrophils (%) (Auto) 79.8 37.0-80.0 % Lymphocytes (%) (Auto) 10.0 10.0-50.0 % Monocytes (%) (Auto) 8.6 0.0-12.0 % Eosinophils (%) (Auto) 1.5 0.0-7.0 % Basophils (%) (Auto) 0.1 0.0-2.0 % Neutrophils # (Auto) 8.0 1.6-8.6 10 ^3/uL Lymphocytes # (Auto) 1.0 0.4-5.4 10 ^3/uL Monocytes # (Auto) 0.9 0-1.3 10 ^3/uL Eosinophils # (Auto) 0.1 0-0.8 10 ^3/uL Basophils # (Auto) 0 0-0.2 10 ^3/uL Nucleated Red Blood Cells 0.0 % Sodium Level 146 H 136-145 mmol/L Potassium Level 4.1 3.5-5.1 mmol/L Chloride Level 112 H 98-107 mmol/L Carbon Dioxide Level 28 20-31 mmol/L Anion Gap 6 5-15 Blood Urea Nitrogen 23 9-23 mg/dL Creatinine 1.33 H 0.550-1.02 mg/dL Glomerular Filtration Rate Calc 42 >90 mL/min BUN/Creatinine Ratio 17.3 10.0-20.0 Serum Glucose 110 H 74-106 mg/dL Calcium Level 10.4 8.7-10.4 mg/dL Urine Color Colorless Yellow Urine Clarity Clear Clear Urine pH 6.5 5.0-9.0 Urine Specific [place] 1.007 1.001-1.035 Urine Protein Negative Negative Urine Ketones Negative Negative Urine Blood Negative Negative /uL Urine Nitrite Negative Negative Urine Bilirubin Negative Negative Urine Urobilinogen Normal Negative mg/dL Urine Leukocyte Esterase Trace Negative /uL Urine RBC 3 0 - 4 /hpf Urine Microscopic WBC 2 0-5 /HPF Urine Squamous Epithelial Cells Few <5 /hpf Urine Bacteria Few H None Seen /hpf Urine Hyaline Casts Few 0 - 2 /lpf Urine Glucose Normal Normal mg/dL D-Dimer, Quantitative 0.81 H 0.0-0.49 mg/L FEU Troponin I High Sensitivity 4 </=34 ng/L B-Type Natriuretic Peptide 134.20 0-100 pg/mL Assessment Chest pain, likely in the setting of hypertensive emergency Rule out structural heart disease Dyslipidemia Type 2 diabetes mellitus Vaginal cuff cancer currently undergoing chemotherapy and radiation Acute kidney injury Urinary incontinence Morbid obesity Plan/Recommendation We will continue with the following plan/recommendations (): We will proceed by obtaining a transthoracic echocardiogram to evaluate cardiac function. Chest pain likely in the setting of hypertensive emergency. At the time of assessment, the patient denies any cardiac symptoms. We will recommend for aggressive blood pressure control and up titrate dose as tolerated. Continue with lipid-lowering agent. DVT/VTE prophylaxis. Close Cardiac surveillance. Thank you for allowing us to care for this patient. Please call with any questions or concerns. Critical care time spent: 44 minutes This medical document was created using an electronic medical record system with voice recognition software and computerized dictation system. Although this document has been carefully reviewed, there might still be some phonetic and typographical errors. Occasional wrong-word or ``sound-alike substitutions may have occurred due to the inherent limitations of voice recognition software. These areas are purely typographical due to imperfections of the software programs and do not reflect any compromise in the patient's medical care. Please read the chart carefully and recognize, using context, where these substitutions have occurred. Plan discussed with: Patient NYHA Physical activity limitations: NA Date of Service: September 04, 2024 Billing Provider: TRAVIS SMALL Cardiology Common Codes: 85130-[id number] INP/OBS CARE (High) Cardiology Consultation Codes: 04724-[id number] CONSULT <45MIN TRAVIS SMALL September 04, 2024 14:04
[2024-09-04] MEDS: NIFEdipine ER 30 MG TAB PO ONE (14:24)
[2024-09-04 14:48] LABS: Magnesium 1.9 mg/dL (1.6-2.6)
[2024-09-04] MEDS: diphenhdrAMINE HCL 25 MG CAP PO PRN (21:46)
[2024-09-04] MEDS: CARVEDILOL 3.125 MG TAB PO SCH (21:48)
[2024-09-04] MEDS: ATORVASTATIN 20 MG TAB PO SCH (21:48)
[2024-09-05 01:00] VITALS: BP 134/62; PULSE 82; RESP 18; TEMP 98.4; O2SAT 98
[2024-09-05 07:26] LABS: Anion Gap 9 (5-15); Carbon Dioxide 28 mmol/L (20-31); Potassium 3.9 mmol/L (3.5-5.1)
[2024-09-05 07:27] LABS: Basophils # (auto) 0 10 ^3/uL (0-0.2); Basophils % (auto) 0.2 % (0.0-2.0); Eosinophils # (auto) 0.1 10 ^3/uL (0-0.8); Eosinophils % (auto) 1.6 % (0.0-7.0); Hematocrit 37.2 % (36.0-46.0); Hemoglobin 12.4 g/dL (12.2-16.2); Lymphocytes % (auto) 12.2 % (10.0-50.0); Mean Corpuscular Hgb Conc. 33.4 g/dL (32.0-36.0); Mean Corpuscular Volume 86.8 fL (80.0-100.0); Monocytes # (auto) 0.7 10 ^3/uL (0-1.3); Neutrophils # (auto) 6.4 10 ^3/uL (1.6-8.6); Platelet Count (auto) 223 10^3/uL (140-450); Red Blood Cells 4.29 10^6/uL (4.0-5.20); Red Cell Distribution Width 14.6 % (11.8-14.3); White Blood Cell 8.3 10^3/uL (4.4-10.8)
[2024-09-05 07:38] LABS: Blood Urea Nitrogen 24 mg/dL (9-23); Calcium 10.7 mg/dL (8.7-10.4); Chloride 110 mmol/L (98-107); Sodium 147 mmol/L (136-145)
[2024-09-05 07:51] LABS: Glucose 102 mg/dL (74-106)
[2024-09-05 08:00] VITALS: PULSE 73; RESP 18
[2024-09-05 08:26] VITALS: BP 136/69; PULSE 77; RESP 20; TEMP 98.6; O2SAT 96
[2024-09-05] MEDS: NIFEdipine ER 30 MG TAB PO SCH (09:31)
[2024-09-05] MEDS ORDERED: NIFE1TAB31 PO (12:27)
[2024-09-05] MEDS ORDERED: CARV-214 PO (12:27)
[2024-09-05] MEDS ORDERED: ASPI-325 PO (12:27)
[2024-09-05] MEDS ORDERED: ATOR20TA50 PO (12:27)
--- NOTE | 2024-09-05 12:29 | DVHDS2 ---
Discharge Summary Date of Admission Sep 03, 2024 at 22:22 Date of Discharge: September 05, 2024 Labs/Diagnostic Data: Laboratory Results Test 09/05/24 11:20 09/05/24 06:01 09/04/24 08:21 09/03/24 14:38 POC Glucose 113 mg/dl (70-106) White Blood Count 8.3 10^3/uL (4.4-10.8) Red Blood Count 4.29 10^6/uL (4.0-5.20) Hemoglobin 12.4 g/dL (12.2-16.2) Hematocrit 37.2 % (36.0-46.0) Mean Corpuscular Volume 86.8 fL (80.0-100.0) Mean Corpuscular Hemoglobin 29.0 pg (28.0-32.0) Mean Corpuscular Hemoglobin Concent 33.4 g/dL (32.0-36.0) Red Cell Distribution Width 14.6 % (11.8-14.3) Platelet Count 223 10^3/uL (140-450) Mean Platelet Volume 8.5 fL (6.9-10.8) Neutrophils (%) (Auto) 78.0 % (37.0-80.0) Lymphocytes (%) (Auto) 12.2 % (10.0-50.0) Monocytes (%) (Auto) 8.0 % (0.0-12.0) Eosinophils (%) (Auto) 1.6 % (0.0-7.0) Basophils (%) (Auto) 0.2 % (0.0-2.0) Neutrophils # (Auto) 6.4 10 ^3/uL (1.6-8.6) Lymphocytes # (Auto) 1.0 10 ^3/uL (0.4-5.4) Monocytes # (Auto) 0.7 10 ^3/uL (0-1.3) Eosinophils # (Auto) 0.1 10 ^3/uL (0-0.8) Basophils # (Auto) 0 10 ^3/uL (0-0.2) Nucleated Red Blood Cells 0.0 % Sodium Level 147 mmol/L (136-145) Potassium Level 3.9 mmol/L (3.5-5.1) Chloride Level 110 mmol/L (98-107) Carbon Dioxide Level 28 mmol/L (20-31) Anion Gap 9 (5-15) Blood Urea Nitrogen 24 mg/dL (9-23) Creatinine 1.26 mg/dL (0.550-1.02) Glomerular Filtration Rate Calc 45 mL/min (>90) BUN/Creatinine Ratio 19.0 (10.0-20.0) Serum Glucose 102 mg/dL (74-106) Calcium Level 10.7 mg/dL (8.7-10.4) Hemoglobin A1c 5.8 % A1C (<5.7) Magnesium Level 1.9 mg/dL (1.6-2.6) Triglycerides Level 172 mg/dL (< 150) Cholesterol Level 132 mg/dL (< 200) LDL Cholesterol 58 mg/dL (< 100) HDL Cholesterol 44 mg/dL (40-59) Thyroid Stimulating Hormone (TSH) 1.19 uIU/mL (0.55-4.78) Urine Color Colorless (Yellow) Urine Clarity Clear (Clear) Urine pH 6.5 (5.0-9.0) Urine Specific [place] 1.007 (1.001-1.035) Urine Protein Negative (Negative) Urine Ketones Negative (Negative) Urine Blood Negative /uL (Negative) Urine Nitrite Negative (Negative) Urine Bilirubin Negative (Negative) Urine Urobilinogen Normal mg/dL (Negative) Urine Leukocyte Esterase Trace /uL (Negative) Urine RBC 3 /hpf (0 - 4) Urine Microscopic WBC 2 /HPF (0-5) Urine Squamous Epithelial Cells Few /hpf (<5) Urine Bacteria Few /hpf (None Seen) Urine Hyaline Casts Few /lpf (0 - 2) Urine Glucose Normal mg/dL (Normal) Test 09/03/24 13:26 D-Dimer, Quantitative 0.81 mg/L FEU (0.0-0.49) Troponin I High Sensitivity 4 ng/L (</=34) B-Type Natriuretic Peptide 134.20 pg/mL (0-100) Other Laboratory Tests 09/05/24 06:01 Brief Hx & Hospital Course: 74-year-old female with past medical history of 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 Patient endorses leg swelling began after she started chemotherapy. There are no associated factors with chest pain. On arrival to the emergency department patient is noted to be hypertensive with blood pressure as high as 200/88. Patient endorses that she was recently taken off hydrochlorothiazide due to bladder urgency, and her blood pressure has been difficult to manage. During the emergency department evaluation D-dimer is elevated at 0.81. However is unable to complete a CT angio of the chest rule out PE due to the patient's allergy to contrast iodine. At this time patient denies fevers, chills, shortness of breath, nausea, vomiting. 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 Patient's chest pain felt secondary to poorly controlled high blood pressure. Patient apparently stopped taking her hydrochlorothiazide and bisoprolol. Patient is counseled and educated regarding checking blood pressure at home and being compliant with the her cardiac medications. She was started on Coreg and calcium channel derrick in the hospital. Her blood pressure has normalized. Her chest pain is resolved. Her troponins have been normal x2. she is feeling better. Her V/Q scan is low probability for PE. She was not having any other issues. Therefore it is felt she could be safely discharged home. I have talked with the patient regarding her hospital diagnosis, treatment she received, discharge medications, discharge instructions and follow-up plan of care. She has verbalized understanding of these and agree with the care plan as outlined. 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 Chest pain likely in the setting of hypertensive emergency. At the time of assessment, the patient denies any cardiac symptoms. We will recommend for aggressive blood pressure control and up titrate dose as tolerated. Continue with lipid-lowering agent. DVT/VTE prophylaxis. Close Cardiac surveillance. Thank you for allowing us to care for this patient. Please call with any questions or concerns. Critical care time spent: 44 minutes This medical document was created using an electronic medical record system with voice recognition software and computerized dictation system. Although this document has been carefully reviewed, there might still be some phonetic and typographical errors. Occasional wrong-word or ``sound-alike substitutions may have occurred due to the inherent limitations of voice recognition software. These areas are purely typographical due to imperfections of the software programs and do not reflect any compromise in the patient's medical care. Please read the chart carefully and recognize, using context, where these substitutions have occurred. 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 Acute kidney injury Urinary incontinence Morbid obesity Discharge Disposition: Home Discharge Instruct/Medications Diet: Cardiac 2g Na,low cholest Activity: No Restrictions, As Tolerated New Medications: Aspirin (Aspirin Low Dose) 81 Mg Tab 81 MG PO DAILY, #30 TAB Atorvastatin Calcium (Atorvastatin Calcium) 20 Mg Tab 10 MG PO HS, #30 TAB Carvedilol (Coreg) 3.125 Mg Tab 3.125 MG PO BID, #90 TAB Nifedipine (Nifedipine Er) 30 Mg Tab 30 MG PO DAILY, #90 TAB 1 Refill Continued Medications: Glipizide (Glipizide) 5 Mg Tab 7.5 MG PO, TAB Semaglutide (Ozempic) 2 Mg/3 Ml Inj 2 MG SC QWEEKLY, INJ Discharge Statement: "Patient was advised to return to the ER or call 911 if any headaches, dizziness, shortness of breath, chest pain, abdominal pain, bleeding, fevers, or worsening of medical condition. Patient was counseled about treatment plan, medications, possible side effects, patientverbalized understanding. All questions were answered to the best of my ability. This discharge took greater then 30 minutes in planning, reviewing documentation, counseling the patient, and discussing with other team members." ASSESSMENT ASSESSMENT Assessment JOSE JUNG MD September 05, 2024 12:29
[2024-09-05 13:00] VITALS: BP 149/73; PULSE 75; RESP 16; TEMP 97.9; O2SAT 95
--- NOTE | 2024-09-05 13:44 | DVHPN2 ---
Consult Progress Note Date Seen: September 05, 2024 Subjective Review of Systems: CVS:Normal, RESPIRATORY:Normal, NEURO:Normal Objective vital signs Vital Sign Date Time Temp Pulse Resp B/P (MAP) Pulse Ox O2 Delivery O2 Flow Rate FiO2 09/05/24 10:31 130/82 09/05/24 08:26 98.6 77 20 96 98.6 09/05/24 08:00 Nasal Cannula* 2 28 Total Intake and Output 09/04/24 09/04/24 09/05/24 15:00 23:00 07:00 Intake Total 50 ml Balance 50 ml medications Current Medications Medications Dose Ordered Sig/Luigi Route Start Time Stop Time Status Last Admin Dose Admin Acetaminophen 650 mg Q6HP PRN PO 09/03/24 22:30 09/05/24 06:19 650 MG Acetaminophen/ Hydrocodone Bitart 1 tab Q4HP PRN PO 09/03/24 22:30 Ondansetron HCl 4 mg Q4HP PRN IV 09/03/24 22:30 Enoxaparin Sodium 40 mg DAILY SC 09/04/24 10:00 09/05/24 09:31 40 MG Nitroglycerin 0.4 mg Q5MINP PRN SL 09/03/24 22:30 Morphine Sulfate 2 mg Q30M PRN IV 09/03/24 22:30 Hydralazine HCl 10 mg Q4HPRN PRN IV 09/03/24 22:30 09/04/24 11:45 10 MG Aspirin 81 mg DAILY PO 09/04/24 10:00 09/05/24 09:30 81 MG Atorvastatin Calcium 10 mg HS PO 09/04/24 22:00 09/04/24 21:48 10 MG Diagnostic Test (Pha) 1 strip ACHS 09/04/24 07:00 09/05/24 11:28 1 STRIP Insulin Human Regular ACHS SC 09/04/24 07:00 Dextrose 50 ml UD PRN IV 09/03/24 22:30 Nifedipine 30 mg DAILY PO 09/05/24 10:00 09/05/24 09:31 30 MG Carvedilol 3.125 mg Q12HR PO 09/04/24 22:00 09/05/24 09:31 3.125 MG Diphenhydramine HCl 25 mg Q8HP PRN PO 09/04/24 20:45 09/05/24 06:19 25 MG Examination: LUNGS:Normal, CVS:Normal, NEURO:Normal laboratory and microbiology Laboratory Tests 09/05/24 06:01 Test 09/05/24 06:01 Range/Units Serum Glucose 102 74-106 mg/dL Problem List/Assessment/Plan Problem List/Assessment/Plan Chest pain in the setting of hypertensive emergency Rule out structural heart disease Dyslipidemia Type 2 diabetes mellitus 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 Chest pain hypertensive emergency. Continue aggressive blood pressure control for a SBP <140 mmHg. Continue with lipid-lowering agent. Consider outpatient echocardiogram and stress test if deemed necessary. There is no further cardiac work-up indicated at this time. Thank you for allowing us to care for this patient. This medical document was created using an electronic medical record system with voice recognition software and computerized dictation system. Although this document has been carefully reviewed, there might still be some phonetic and typographical errors. Occasional wrong-word or ``sound-alike substitutions may have occurred due to the inherent limitations of voice recognition software. These areas are purely typographical due to imperfections of the software programs and do not reflect any compromise in the patient's medical care. Please read the chart carefully and recognize, using context, where these substitutions have occurred. Plan discussed with: Patient, Other Date of Service: September 05, 2024 Billing Provider: MARY GUZMAN Cardiology Common Codes: [id number] INP/OBS CARE(Mod) MARY GUZMAN September 05, 2024 13:44
--- NOTE | 2024-09-05 15:02 | ECG ---
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
[2024-09-06] MEDS ORDERED: ATOR20TA50 PO (11:59)
[2024-09-06] MEDS ORDERED: ASPI-325 PO (11:59)
[2024-09-06] MEDS ORDERED: CARV-214 PO (11:59)
[2024-09-06] MEDS ORDERED: NIFE1TAB31 PO (11:59)
== END 2024-09-05 17:12 | disposition home or self-care (01) | DRG 305 ==
LOC: ER 13:20 → OVERFLOW 22:22 → TELE-EAST 09-04 05:37
PROVIDERS: ADMIT Nurse Practitioner Family; ATTEND Nurse Practitioner Family
DX: I16.1 Hypertensive emergency (principal); N17.9 Acute kidney failure, unspecified; E78.5 Hyperlipidemia, unspecified; E11.9 Type 2 diabetes mellitus without complications; E66.01 Morbid (severe) obesity due to excess calories; I51.89 Other ill-defined heart diseases; R32 Unspecified urinary incontinence; Z88.1 Allergy status to other antibiotic agents; Z88.0 Allergy status to penicillin; Z91.041 Radiographic dye allergy status; Z90.710 Acquired absence of both cervix and uterus; Z85.44 Personal history of malignant neoplasm of other female genital organs; Z83.3 Family history of diabetes mellitus; Z79.84 Long term (current) use of oral hypoglycemic drugs; Z79.899 Other long term (current) drug therapy; Z85.42 Personal history of malignant neoplasm of other parts of uterus; Z68.38 Body mass index [BMI] 38.0-38.9, adult
CPT/HCPCS: 36415; 71045; 78582; 80048; 80061; 81001; 82962; 83036; 83735; 83880; 84443; 84484; 85025; 85379; 93005; 93970; 96374; G0378

== ENCOUNTER 2024-09-12 19:54 | Inpatient (IN) | payer OTHER ==
[~2024-09-12] VITALS: Ht 154.9 cm; Wt 206.0 kg
[~2024-09-12 19:54] MED LIST: ASPI-325 PO; ATOR20TA50 PO; CARV-214 PO; GLIP5TAB21 PO; NIFE1TAB31 PO; SEMA2INJ3 SC
--- NOTE | 2024-09-12 20:07 | ED.PDOC ---
Carl. trauma (HPI) HPI Comments 74-year-old female came to ER via EMS for fall injury. Patient was at home earlier, when she accidentally tripped and she fell down landing badly in her left side. Denies any head trauma or loss of consciousness. Patient complaining of left shoulder pain, left upper arm pain, left chest wall pain, left elbow pain and left wrist pain. Still able to stand up and ambulate with the assistance after the fall. 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 Allergies: Coded Allergies: Ceftriaxone (Verified Allergy, Unknown, 09/04/24) Cephalosporins (Verified Allergy, Unknown, 09/03/24) Ciprofloxacin (Verified Allergy, Unknown, 09/03/24) Diphenhydramine (Verified Allergy, Unknown, 09/03/24) IV Iodine (Verified Allergy, Unknown, 09/03/24) IV Levofloxacin (Verified Allergy, Unknown, 09/03/24) Penicillins (Verified Allergy, Unknown, 09/03/24) Uncoded Allergies: ALOE VERA (Adverse Reaction, Severe, SEVERE SKIN RASH AND BREAK DOWN, 09/13/24) LUBRICATE (Adverse Reaction, Severe, 09/03/24) ALLERGY TO ULTRASOUND LUBRICATING JELLY Home Meds Active Scripts Oxycodone W/ Acetaminophen (Percocet 5/325MG) 1 Tab Tb, 1 TAB PO QID PRN, #20 TAB Prov:FLORY SLADE MD 09/13/24 Ondansetron Odt 4MG Tab (ZOFRAN PO) 4 Mg Tb, 4 MG PO Q8HP PRN, #20 TAB ODT TAB-DISSOLVE IN MOUTH, THEN SWALLOW Prov:FLORY SLADE MD 09/13/24 Naloxone HCl (Narcan) 4 Mg/0.1 Ml Spr, 4 MG NA DOUGH PANNER, #2 SPRAY Prov:FLORY SLADE MD 09/13/24 Atorvastatin Calcium (ATORVASTATIN CALCIUM) 20 Mg Tab, 10 MG PO HS MDD ., #30 TAB Prov:JOSE JUNG MD 09/06/24 Nifedipine (Nifedipine Er) 30 Mg Tab, 30 MG PO DAILY MDD ., #90 TAB 1 Refill Prov:JOSE JUNG MD 09/06/24 Carvedilol (COREG) 3.125 Mg Tab, 3.125 MG PO BID MDD ., #90 TAB Prov:JOSE JUNG MD 09/06/24 Aspirin (Aspirin Low Dose) 81 Mg Tab, 81 MG PO DAILY MDD ., #30 TAB Prov:JOSE JUNG MD 09/06/24 Reported Medications Semaglutide (Ozempic) 2 Mg/3 Ml Inj, 2 MG SC QWEEKLY, INJ 09/04/24 Glipizide (Glipizide) 5 Mg Tab, 7.5 MG PO, TAB 09/04/24 Information Source: Patient, Emergency Med Personnel Mode of Arrival: EMS Severity: Moderate Timing: Minutes Duration: Since onset Prehospital treatment: C-Collar, Oxygen Location: (L) Arm, Chest (Left chest wall), (L) Elbow, (L) Shoulder, (L) Wrist Mechanism: Fall Associated signs and symtoms: Weakness Vital Signs Vital Signs Date Time Temp Pulse Resp B/P (MAP) Pulse Ox O2 Delivery O2 Flow Rate FiO2 09/13/24 00:18 98.1 09/13/24 00:17 85 13 166/72 09/13/24 00:00 91 Room Air* 0 21 Physical Exam General: Awake, alert and oriented. No acute distress. Skin: Skin in warm, dry and intact. Appropriate color for ethnicity. HEENT: The head is normocephalic and atraumatic. Conjunctivae are clear without exudates or hemorrhage. Sclera is non-icteric. EOM are intact. PERRLA. No signs of nystagmus. Eyelids are normal in appearance without swelling or lesions. Oral mucosa is pink and moist Neck: The neck is supple with normal range of motion. No JVD. Cardiac: Heart rate and rhythm are normal. No murmurs, gallops, or rubs are auscultated. Respiratory: No signs of respiratory distress. Lung sounds are clear in all lobes bilaterally without rales, rhonchi, or wheezes. Abdominal: Abdomen is soft, non-tender without distention. Bowel sounds are present and normoactive in all four quadrants. Extremities: Left neck, left shoulder, left elbow, left wrist tenderness. No obvious deformity, bruising, swelling or laceration. Neurological: The patient is awake, alert and oriented to person, place, and time with normal speech. Speech is clear. There is no facial asymmetry. Psychiatric: Appropriate mood and affect. Good judgement and insight. 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 Was a procedure done?: No EKG EKG : Pulse Rate (adult): 85 Cardiac Rhythm: NSR Comments Multiple ventricular premature complex Differential Diagnosis Multiple Trauma: Other (Differential diagnoses considered include but are not limited to closed head injury, skull fracture, TBI, long bone fracture, rib fracture, pneumothorax, spinal fracture, spinal injury, cardiac contusion, organ laceration, pelvic fracture, laceration, soft tissue injury, vascular injury, other) X-Ray, Labs, Meds, VS Vital Signs Date Time Temp Pulse Resp B/P (MAP) Pulse Ox O2 Delivery O2 Flow Rate FiO2 09/13/24 00:18 98.1 09/13/24 00:17 85 13 166/72 09/13/24 00:00 91 13 91 Room Air* 0 21 09/12/24 23:59 98.1 92 13 166/72 (103) 91 98.1 09/12/24 20:08 85 09/12/24 20:06 85 09/12/24 19:54 97.8 86 16 144/65 (91) 99 97.8 Lab Test 09/13/24 00:03 Range/Units POC Glucose 121 H 70-106 mg/dl Current Medications Medications (Trade) Dose Ordered Sig/Luigi Route Start Time Stop Time Status Last Admin Morphine Sulfate 2 mg ONCE ONCE IV 09/12/24 23:30 09/12/24 23:35 DC 09/13/24 00:17 Time of 1ST Reevaluation: 20:06 Reevaluation 1ST: Unchanged Patient Education/Counseling: Need For Follow Up Family Education/Counseling: Need For Follow Up Departure 1 Departure Time of Disposition: 23:30 Impression: Primary Impression: Closed fracture of left proximal humerus Disposition: ADMITTED INPATIENT Condition: Stable e-Prescriptions Oxycodone W/ Acetaminophen (Percocet 5/325MG) 1 Tab Tb 1 TAB PO QID PRN, #20 TAB Prov: FLORY SLADE MD 09/13/24 Ondansetron Odt 4MG Tab (ZOFRAN PO) 4 Mg Tb 4 MG PO Q8HP PRN, #20 TAB ODT TAB-DISSOLVE IN MOUTH, THEN SWALLOW Prov: FLORY SLADE MD 09/13/24 Naloxone HCl (Narcan) 4 Mg/0.1 Ml Spr 4 MG NA DOUGH PANNER, #2 SPRAY Prov: FLORY SLADE MD 09/13/24 Comments Critical Care Note Critical Care Time?: No Stability Stability form required: No Heart Score Heart Score: Heart Score Response (Comments) Value History N/A 0 EKG N/A 0 Age N/A 0 Risk Factors N/A 0 Troponin N/A 0 Total 0 I personally scribed for TIAN JIMÉNEZ MD ([email or web address]) on 09/12/24 at 20:07. Electronically submitted by Daryl Raymond ([email or web address]). I personally scribed for TIAN JIMÉNEZ MD ([email or web address]) on 09/12/24 at 20:08. Electronically submitted by Daryl Raymond ([email or web address]). TIAN JIMÉNEZ MD September 12, 2024 20:07
--- NOTE | 2024-09-12 22:24 | DVH ---
CLINICAL INDICATION: Falling TECHNIQUE: 2 radiographic views of the left shoulder were obtained. Comparison: None FINDINGS/IMPRESSION: Displaced fracture of the greater tuberosity of the proximal humerus is seen. The visualized joint space is well maintained. The alignment is anatomical. There is no radiopaque foreign body. HS:Y
--- NOTE | 2024-09-12 22:44 | DVH ---
CLINICAL INDICATION: Fall injury TECHNIQUE: XY L ELBOW 3 VIEW XRAY Comparison: None FINDINGS/IMPRESSION: : There is no evidence of acute fracture or dislocation. 1.2 cm polygonal radiodense foreign body within the anterolateral soft tissues of the proximal forear m. Soft tissues are otherwise unremarkable.
--- NOTE | 2024-09-12 22:44 | DVH ---
CHEST RADIOGRAPH Indication: Fall injury Technique: Single frontal view of the chest was obtained COMPARISON: XY CHEST PORTABLE on DOS: 09/03/24 FINDINGS: Patient is rotated. Lines and Tubes: None Lungs: No definite abnormality demonstrated. Pleura: No pleural effusion. No pneumothorax. Cardiomediastinal contours: Within normal limits. IMPRESSION: No definite acute abnormality identified.
--- NOTE | 2024-09-12 22:50 | DVH ---
EXAM: CT CERVICAL WITHOUT CONTRAST INDICATION: Fall injury, neck pain EXAM DATE: 09/12/2024 09:59 PM COMPARISON: None TECHNIQUE: Multiple axial CT images of the cervical spine were obtained using bone algorithm. Axial a nd coronal reformatting was done. Bone and soft tissue windows were reviewed. Radiation Dose Information: CT Dose: CTDI volume is 24.14 mGy. Dose-length product is 603.44 mGy*cm FINDINGS: The cervical alignment is intact. No acute cervical spine fracture is identified. The vertebral body heights are intact. No suspicious osseous lesions are identified. No significant degenerative changes are identified. There is no prevertebral soft tissue swelling. IMPRESSION: 1. No evidence of acute cervical spine fracture or traumatic malalignment. 2. Mild bony spondylosis and degenerative disc changes at C3 C4 C5, and C6. HS:Y All CT scans at this medical facility are performed using dose modulation techniques as appropriate t o a performed exam including the following: Automated exposure control was utilized; adjustment of th e MA and/or KV according to patient size; and use of iterative reconstruction technique.
--- NOTE | 2024-09-12 23:37 | DVH ---
EXAM: XY L WRIST 3 VIEW XRAY HISTORY: Fall injury COMPARISON: None TECHNIQUE: 3 views of the left wrist were performed. FINDINGS: No acute fracture or dislocation are identified about the left wrist. No significant degenerative ch anges. IMPRESSION: 1. No acute fracture of the left wrist.
[2024-09-13] VITALS: PULSE 91; RESP 13; O2SAT 91
[2024-09-13] MEDS: MORPHINE SULFATE INJ 2 MG/ml SYRG IV ONE (00:17)
[2024-09-13] MEDS: NAPROXEN 500 MG TAB PO ONE (00:18)
[2024-09-13] MEDS: ACETAMINOPHEN 500 MG TAB or CAP PO ONE (00:18)
--- NOTE | 2024-09-13 00:42 | DVHHP2 ---
PENNY WEBSTER RESIDENT 09/13/24 0042: History of Present Illness History of Present Illness Patient is 74 years old female with past medical history of vaginal Cancer, on chemo and radiotherapy, DM, HTN came with a complaint of fall and left shoulder pain. The patient she tripped and fell on her left side at home last night. After fall pain was 10/10, sharp severe. Patient complaining of left shoulder pain, left upper arm pain, left chest wall pain, left elbow pain and left wrist pain. Denies any head trauma or loss of consciousness. Patient did not chest pain or shortness of breath dysuria acute joint redness. X-ray left shoulder- Displaced fracture of the greater tuberosity of the proximal humerus is seen.1. X-ray cervical spine- No evidence of acute cervical spine fracture or traumatic malalignment. 2. Mild bony spondylosis and degenerative disc changes at C3 C4 C5, and C6. CXR- No definite acute abnormality identified. X-ray left elbow- 1.2 cm polygonal radiodense foreign body within the anterolateral soft tissues of the proximal forearm. Soft tissues are otherwise unremarkable. X-ray Left wrist1. No acute fracture of the left wrist. Past Medical History History of hypertension, diabetes mellitus, vaginal carcinoma on chemo 100 service, history of uterine carcinoma, status post hysterectomy, status post radiation therapy Past Surgical History Status post hysterectomy Past Social History Daughter, denies smoking/alcoholism/drug abuse Home meds Coreg 3.125 mg p.o. b.i.d., glipizide 7.5 mg p.o. b.i.d., nifedipine 30 mg q.d., Ozempic Q weekly, atorvastatin 10 mg p.o. q.h.s. Review of Systems Review of Systems Patient was seen today at the bedside. Cardiovascular- deny acute chest pain or shortness of breath or cough or palpitation Respiratory denies cough or short of breath or wheezing Gastrointestinal- denies any rectal bleeding, nausea or vomiting Musculoskeletal-denies acute joint swelling or tenderness or redness Neurological- denies acute dysarthria, dysphagia, change in vision Psychiatry- denies depression or SI or HI Skin- denies acute rash or purpura Allergies: Coded Allergies: Ceftriaxone (Verified Allergy, Unknown, 09/04/24) Cephalosporins (Verified Allergy, Unknown, 09/03/24) Ciprofloxacin (Verified Allergy, Unknown, 09/03/24) Diphenhydramine (Verified Allergy, Unknown, 09/03/24) IV Iodine (Verified Allergy, Unknown, 09/03/24) IV Levofloxacin (Verified Allergy, Unknown, 09/03/24) Penicillins (Verified Allergy, Unknown, 09/03/24) Uncoded Allergies: ALOE VERA (Adverse Reaction, Severe, SEVERE SKIN RASH AND BREAK DOWN, 09/13/24) LUBRICATE (Adverse Reaction, Severe, 09/03/24) ALLERGY TO ULTRASOUND LUBRICATING JELLY Exam Vital Signs Vital Signs Date Time Temp Pulse Resp B/P (MAP) Pulse Ox O2 Delivery O2 Flow Rate FiO2 09/13/24 00:18 98.1 09/13/24 00:17 85 13 166/72 09/12/24 23:59 91 Exam General examination- awake, alert, oriented, conversant HEENT- PEERLA, no acute nasal discharge Cardiovascular- S1-S2 audible, rate and rhythm regular, no murmur Respiratory- CTAB, no wheeze or rhonchi Gastrointestinal-nontender, bowel sound+. Nondistended Musculoskeletal-no acute joint swelling or tenderness or redness extremity left shoulder tenderness Neurological- cranial nerves intact, no acute dysarthria or dysphagia Psychiatry- denies depression or SI or HI Skin- no acute rash or purpura Labs/Xrays Labs Test 09/13/24 00:03 Range/Units POC Glucose 121 H 70-106 mg/dl Assessment/Plan Assessment/Plan Assessment and plan Status post fall, left humeral fracture Left shoulder left wrist and elbow pain likely traumatic pain out status post fall Hypertension Diabetes mellitus type 2 Hyperlipidemia Vaginal carcinoma on with the therapy and chemotherapy carcinoma, status post hysterectomy, status post radiotherapy Mild bony spondylosis and degenerative disc changes at C3 C4 C5, and C6. X-ray left shoulder- Displaced fracture of the greater tuberosity of the proximal humerus is seen.1. X-ray cervical spine- No evidence of acute cervical spine fracture or traumatic malalignment. 2. Mild bony spondylosis and degenerative disc changes at C3 C4 C5, and C6. CXR- No definite acute abnormality identified. X-ray left elbow- 1.2 cm polygonal radiodense foreign body within the anterolateral soft tissues of the proximal forearm. Soft tissues are otherwise unremarkable. X-ray Left wrist1. No acute fracture of the left wrist. Plan Continue with the pain management as prescribed Ordered orthopedic consult for further evaluation and care Resume home medication carvedilol, atorvastatin, nifedipine Goals of care, Code status ; discussed with >15 minutes PUD prophylaxis: Pantoprazole DVT prophylaxis: SCD Plan discussed with Dr. Prado , nursing staff, Total time spent on patient evaluation, chart review, assessment and plan, discussion discussion >35 minutes Plan discussed with: Patient, Daughter, Other (RN) My Orders Orders - PENNY WEBSTER Procedure Category Date Status Time Admit ADMIT 09/13/24 Transmitted 00:39 Code Status CODE 09/13/24 Transmitted 00:39 Sodium Chloride Lock PHA 09/13/24 Transmitted (Saline Lock Ns) 06:00 Hydrocodone-Acet PHA 09/13/24 Transmitted 5/325mg Tab ([place] 00:45 Ondansetron Hcl PHA 09/13/24 Transmitted (Zofran) 00:45 Docusate Sodium PHA 09/13/24 Transmitted Capsule (Colace 00:45 Complete Blood Count LAB 09/14/24 Verified 04:00 Comprehensive LAB 09/14/24 Verified Metabolic Panel 04:00 Npo (Nothing By DIET 09/13/24 Transmitted Mouth) Diet Breakfast Acetaminophen Tablet PHA 09/13/24 Transmitted (Tylenol Tablet) 00:45 Nitroglycerin PHA 09/13/24 Transmitted Sublingual (Ntrostat 00:45 Morphine Sulfate PHA 09/13/24 Transmitted Injection 00:45 Oxygen By Nasal RT 09/13/24 Transmitted Cannula 00:39 Stat Ekg For Chest [facility] 09/13/24 Transmitted Pain 00:39 Notify Md Of Changes [facility] 09/13/24 Transmitted From Base 00:39 General Utility Worker For [facility] 09/13/24 Transmitted 24 Hours 00:39 Emergency Dysrhythmia [facility] 09/13/24 Transmitted Protocol 00:39 Rhythm Strips Once [facility] 09/13/24 Transmitted Every Shift 00:39 Date of Service: September 13, 2024 Billing Provider: PENNY WEBSTER Common Visit Codes: 51389-EDDABLE INP/OBS CARE (HIGH) Secondary Visit Codes: 19133-JWMFCDQD CARE PLAN 30 MINUTES FLORY SLADE MD 09/13/24 1558: Review of Systems Allergies: Coded Allergies: Ceftriaxone (Verified Allergy, Unknown, 09/04/24) Cephalosporins (Verified Allergy, Unknown, 09/03/24) Ciprofloxacin (Verified Allergy, Unknown, 09/03/24) Diphenhydramine (Verified Allergy, Unknown, 09/03/24) IV Iodine (Verified Allergy, Unknown, 09/03/24) IV Levofloxacin (Verified Allergy, Unknown, 09/03/24) Penicillins (Verified Allergy, Unknown, 09/03/24) Uncoded Allergies: ALOE VERA (Adverse Reaction, Severe, SEVERE SKIN RASH AND BREAK DOWN, 09/13/24) LUBRICATE (Adverse Reaction, Severe, 09/03/24) ALLERGY TO ULTRASOUND LUBRICATING JELLY Additional Comments Additional Comments Additional Comments Patient was seen and evaluated by me. I agree with the assessment and plan as outlined by my nurse practitioner. PENNY WEBSTER RESIDENT September 13, 2024 00:42 FLORY SLADE MD September 13, 2024 15:58
[2024-09-13] MEDS ORDERED: HYDROcodone-ACET 5/325MG TAB PO PRN (00:45)
[2024-09-13] MEDS ORDERED: MORPHINE SULFATE INJ 2 MG/ml SYRG IV PRN (00:45)
[2024-09-13] MEDS ORDERED: NITROGLYCERIN 0.4 MG SL TAB SL PRN (00:45)
[2024-09-13] MEDS ORDERED: DOCUSATE SOD 100 MG CAP PO PRN (00:45)
[2024-09-13] MEDS ORDERED: ONDANSETRON HCL 4 MG/2 ML VIAL IV PRN (00:45)
[2024-09-13 01:03] LABS: Basophils # (auto) 0.1 10 ^3/uL (0-0.2); Basophils % (auto) 0.6 % (0.0-2.0); Eosinophils # (auto) 0.1 10 ^3/uL (0-0.8); Eosinophils % (auto) 0.9 % (0.0-7.0); Hematocrit 36.2 % (36.0-46.0); Hemoglobin 11.9 g/dL (12.2-16.2); Lymphocytes # (auto) 0.7 10 ^3/uL (0.4-5.4); Lymphocytes % (auto) 6.9 % (10.0-50.0); Mean Corpuscular Hemoglobin 28.7 pg (28.0-32.0); Monocytes # (auto) 0.7 10 ^3/uL (0-1.3); Monocytes % (auto) 7.1 % (0.0-12.0); Neutrophils # (auto) 8.4 10 ^3/uL (1.6-8.6); Neutrophils % (auto) 84.5 % (37.0-80.0); Nucleated Red Blood Cells % 0.1 %; Platelet Count (auto) 224 10^3/uL (140-450); Red Blood Cells 4.15 10^6/uL (4.0-5.20)
[2024-09-13 01:10] LABS: Potassium 3.8 mmol/L (3.5-5.1); Sodium 144 mmol/L (136-145)
[2024-09-13 01:11] LABS: Anion Gap 9 (5-15); Calcium 9.7 mg/dL (8.7-10.4); Carbon Dioxide 25 mmol/L (20-31)
[2024-09-13 01:16] LABS: BUN/Creatinine Ratio 16.7 (10.0-20.0); Blood Urea Nitrogen 18 mg/dL (9-23); Chloride 110 mmol/L (98-107)
[2024-09-13 01:17] LABS: Glucose 135 mg/dL (74-106)
[2024-09-13] MEDS: PANTOPRAZOLE 40 MG/10 ML VIAL INJ IV ONE (01:29)
--- NOTE | 2024-09-13 02:25 | DVHINCON2 ---
Date of service: September 13, [address] Hoang Reason for Consultation Medical Management History of Present Illness Mrs. Nubia Pedro is a 74 years old female with past medical history of vaginal Cancer, on chemo and radiotherapy, DM, Hypertension, hysterectomy presents with a chief complaint of s/p mechanical fall and left shoulder pain. The patient reports she tripped and fell on her left side at home last night. After the fall her pain was 10/10, sharp severe. Patient complaining of left shoulder pain, left upper arm pain, left chest wall pain, left elbow pain and left wrist pain. Denies any head trauma or loss of consciousness. Patient did not have chest pain or shortness of breath dysuria acute joint redness. X-ray left shoulder- Displaced fracture of the greater tuberosity of the proximal humerus is seen.1. X-ray cervical spine- No evidence of acute cervical spine fracture or traumatic malalignment. 2. Mild bony spondylosis and degenerative disc changes at C3 C4 C5, and C6. CXR- No definite acute abnormality identified. X-ray left elbow- 1.2 cm polygonal radiodense foreign body within the anterolateral soft tissues of the proximal forearm. Soft tissues are otherwise unremarkable. X-ray Left wrist1. No acute fracture of the left wrist. I was consulted for medical management of this patient. Past Medical History Cancer, DM, HTN Surgical History: Hysterectomy FLIGHT SOFTWARE TEST ENGINEER History: No Pertinent FLIGHT SOFTWARE TEST ENGINEER History Past Surgical History Hysterectomy Family History: Diabetes mellitus G8 MOTHER G8 FATHER FH: cancer G8 BROTHER Family History Family History: Reviewed,noncontributory to illness Social History Smoker: Non-Smoker Alcohol: Denies ETOH Use Drugs: Denies Drug Use Lives In: Home Allergies: Coded Allergies: Ceftriaxone (Verified Allergy, Unknown, 09/04/24) Cephalosporins (Verified Allergy, Unknown, 09/03/24) Ciprofloxacin (Verified Allergy, Unknown, 09/03/24) Diphenhydramine (Verified Allergy, Unknown, 09/03/24) IV Iodine (Verified Allergy, Unknown, 09/03/24) IV Levofloxacin (Verified Allergy, Unknown, 09/03/24) Penicillins (Verified Allergy, Unknown, 09/03/24) Uncoded Allergies: ALOE VERA (Adverse Reaction, Severe, SEVERE SKIN RASH AND BREAK DOWN, 09/13/24) LUBRICATE (Adverse Reaction, Severe, 09/03/24) ALLERGY TO ULTRASOUND LUBRICATING JELLY Home Meds Active Scripts Atorvastatin Calcium (ATORVASTATIN CALCIUM) 20 Mg Tab, 10 MG PO HS MDD ., #30 TAB Prov:JOSE JUNG MD 09/06/24 Nifedipine (Nifedipine Er) 30 Mg Tab, 30 MG PO DAILY MDD ., #90 TAB 1 Refill Prov:JOSE JUNG MD 09/06/24 Carvedilol (COREG) 3.125 Mg Tab, 3.125 MG PO BID MDD ., #90 TAB Prov:JOSE JUNG MD 09/06/24 Aspirin (Aspirin Low Dose) 81 Mg Tab, 81 MG PO DAILY MDD ., #30 TAB Prov:JOSE JUNG MD 09/06/24 Reported Medications Semaglutide (Ozempic) 2 Mg/3 Ml Inj, 2 MG SC QWEEKLY, INJ 09/04/24 Glipizide (Glipizide) 5 Mg Tab, 7.5 MG PO, TAB 09/04/24 Current Medications Current Medications Medications (Trade) Dose Ordered Sig/Luigi Route PRN Reason Start Time Stop Time Status Last Admin Sodium Chloride (Saline Lock Ns) 10 ml Q8HR IV 09/13/24 06:00 Acetaminophen/ Hydrocodone Bitart ([place] 5/325MG Tab) 1 tab Q4HP PRN PO MODERATE PAIN (4-6 PAIN SCALE) 09/13/24 00:45 Ondansetron HCl (Zofran) 4 mg Q4HP PRN IV NAUSEA / VOMITING 09/13/24 00:45 Docusate Sodium (Colace Capsule) 100 mg BIDPRN PRN PO FOR CONSTIPATION 09/13/24 00:45 Acetaminophen (Tylenol Tablet) 650 mg Q6HP PRN PO PAIN SCALE 1-3 OR TEMP>100.4 09/13/24 00:45 Nitroglycerin (Ntrostat Sublingual) 0.4 mg Q5MINP PRN SL FOR CHEST PAIN 09/13/24 00:45 Morphine Sulfate 2 mg Q30M PRN IV FOR CHEST PAIN 09/13/24 00:45 Atorvastatin Calcium (Lipitor) 10 mg HS PO 09/13/24 22:00 Carvedilol (Coreg Tablet) 3.125 mg BID PO 09/13/24 10:00 Nifedipine (Procardia Xl (Time-Release)) 30 mg DAILY PO 09/13/24 10:00 Pantoprazole Sodium (Protonix) 40 mg DAILY IV 09/14/24 10:00 Review of Systems Cardiovascular- deny acute chest pain or shortness of breath or cough or palpitation Respiratory denies cough or short of breath or wheezing Gastrointestinal- denies any rectal bleeding, nausea or vomiting Musculoskeletal-denies acute joint swelling or tenderness or redness Neurological- denies acute dysarthria, dysphagia, change in vision Psychiatry- denies depression or SI or HI Skin- denies acute rash or purpura Vital Signs Vital Signs Date Time Temp Pulse Resp B/P (MAP) Pulse Ox O2 Delivery O2 Flow Rate FiO2 09/13/24 01:18 98.1 09/13/24 01:00 93 11 135/61 (85) 94 09/13/24 00:00 Room Air* 0 21 Physical Exam General examination- awake, alert, oriented, conversant HEENT- PEERLA, no acute nasal discharge Cardiovascular- S1-S2 audible, rate and rhythm regular, no murmur Respiratory- CTAB, no wheeze or rhonchi Gastrointestinal-nontender, bowel sound+. Nondistended Musculoskeletal-left shoulder tenderness extremity left shoulder tenderness Neurological- cranial nerves intact, no acute dysarthria or dysphagia Psychiatry- denies depression or SI or HI Skin- no acute rash or purpura Labs/Diagnostic Data Labs Test 09/13/24 00:45 09/13/24 00:03 Range/Units White Blood Count 10.0 4.4-10.8 10^3/uL Red Blood Count 4.15 4.0-5.20 10^6/uL Hemoglobin 11.9 L 12.2-16.2 g/dL Hematocrit 36.2 36.0-46.0 % Mean Corpuscular Volume 87.0 80.0-100.0 fL Mean Corpuscular Hemoglobin 28.7 28.0-32.0 pg Mean Corpuscular Hemoglobin Concent 33.0 32.0-36.0 g/dL Red Cell Distribution Width 15.0 H 11.8-14.3 % Platelet Count 224 140-450 10^3/uL Mean Platelet Volume 8.6 6.9-10.8 fL Neutrophils (%) (Auto) 84.5 H 37.0-80.0 % Lymphocytes (%) (Auto) 6.9 L 10.0-50.0 % Monocytes (%) (Auto) 7.1 0.0-12.0 % Eosinophils (%) (Auto) 0.9 0.0-7.0 % Basophils (%) (Auto) 0.6 0.0-2.0 % Neutrophils # (Auto) 8.4 1.6-8.6 10 ^3/uL Lymphocytes # (Auto) 0.7 0.4-5.4 10 ^3/uL Monocytes # (Auto) 0.7 0-1.3 10 ^3/uL Eosinophils # (Auto) 0.1 0-0.8 10 ^3/uL Basophils # (Auto) 0.1 0-0.2 10 ^3/uL Nucleated Red Blood Cells 0.1 % Sodium Level 144 136-145 mmol/L Potassium Level 3.8 3.5-5.1 mmol/L Chloride Level 110 H 98-107 mmol/L Carbon Dioxide Level 25 20-31 mmol/L Anion Gap 9 5-15 Blood Urea Nitrogen 18 9-23 mg/dL Creatinine 1.08 H 0.550-1.02 mg/dL Glomerular Filtration Rate Calc 54 >90 mL/min BUN/Creatinine Ratio 16.7 10.0-20.0 Serum Glucose 135 H 74-106 mg/dL Calcium Level 9.7 8.7-10.4 mg/dL POC Glucose 121 H 70-106 mg/dl Assessment This is a 74 years old female with known medical history of vaginal Cancer, on chemo and radiotherapy, DM, HTN came with a complaint of fall and left shoulder pain. The patient she tripped and fell on her left side at home last night. After fall pain was 10/10, sharp severe. Patient complaining of left shoulder pain, left upper arm pain, left chest wall pain, left elbow pain and left wrist pain. Denies any head trauma or loss of consciousness. Patient did not chest pain or shortness of breath dysuria acute joint redness. X-ray left shoulder- Displaced fracture of the greater tuberosity of the proximal humerus is seen.1. X-ray cervical spine- No evidence of acute cervical spine fracture or traumatic malalignment. 2. Mild bony spondylosis and degenerative disc changes at C3 C4 C5, and C6. CXR- No definite acute abnormality identified. X-ray left elbow- 1.2 cm polygonal radiodense foreign body within the anterolateral soft tissues of the proximal forearm. Soft tissues are otherwise unremarkable. X-ray Left wrist1. No acute fracture of the left wrist. Problems(with codes): (1) Displaced fracture Plan/Recommendation I was consulted by Dr. Hoang for medical management. I consulted with Orthopedic surgeon Dr. Pablito Herrmann discussed x rays , at this time no admission criteria is met, okay to discharge patient home follow up with Orthopedic as outpatient. Discussed with O JOSE Brito for outpatient follow up with Orthopedic surgeon. Discussed all above with Dr. Hoang. Plan discussed with: Patient, Other TARA GREY CLINICAL RESEARCH MONITOR September 13, 2024 02:25
[2024-09-13 02:54] LABS: Urine Bacteria None Seen /hpf (None Seen)
[2024-09-13] MEDS: ACETAMINOPHEN 325 MG TAB PO PRN (03:24)
[2024-09-13 03:28] LABS: Urine Blood Negative /uL (Negative); Urine Budding Yeast OCCASIONAL /hpf (None Seen); Urine Clarity Clear (Clear); Urine Color Colorless (Yellow); Urine Protein, UAD Negative (Negative); Urine Specific Gravity 1.012 (1.001-1.035); Urine Squamous Epithelial Cell None Seen /hpf (<5); Urine Urobilinogen Normal (Negative); Urine WBC 11 /HPF (0-5)
[2024-09-13] MEDS: KETOROLAC TROMETH 30 MG/ML 1ML VIAL IV PRN (04:21)
[2024-09-13 05:59] LABS: Basophils # (auto) 0 10 ^3/uL (0-0.2); Basophils % (auto) 0.5 % (0.0-2.0); Eosinophils # (auto) 0.1 10 ^3/uL (0-0.8); Eosinophils % (auto) 1.5 % (0.0-7.0); Hematocrit 34.2 % (36.0-46.0); Hemoglobin 11.4 g/dL (12.2-16.2); Lymphocytes # (auto) 0.7 10 ^3/uL (0.4-5.4); Lymphocytes % (auto) 10.6 % (10.0-50.0); Mean Corpuscular Hgb Conc. 33.4 g/dL (32.0-36.0); Mean Corpuscular Volume 86.6 fL (80.0-100.0); Monocytes # (auto) 0.6 10 ^3/uL (0-1.3); Monocytes % (auto) 8.7 % (0.0-12.0); Neutrophils # (auto) 5.5 10 ^3/uL (1.6-8.6); Neutrophils % (auto) 78.7 % (37.0-80.0); Platelet Count (auto) 196 10^3/uL (140-450); Red Blood Cells 3.95 10^6/uL (4.0-5.20); Red Cell Distribution Width 15.3 % (11.8-14.3)
[2024-09-13] MEDS: SODIUM CHLOR 0.9% PF (SALINE LOCK) 10ML VIAL/SYR IV SCH (06:00)
[2024-09-13 06:14] LABS: INR 1.03 (0.9-1.15); Prothrombin Time 10.9 sec (9.3-11.8)
[2024-09-13 06:18] LABS: Alanine Aminotransferase 16 U/L (7-40); Albumin 3.7 g/dL (3.2-4.8); Alkaline Phosphatase 88 U/L (46-116); Anion Gap 8 (5-15); BUN/Creatinine Ratio 16.1 (10.0-20.0); Bilirubin, Total 0.4 mg/dL (0.2-1.0); Blood Urea Nitrogen 18 mg/dL (9-23); Calcium 10.2 mg/dL (8.7-10.4); Carbon Dioxide 28 mmol/L (20-31); Glucose 100 mg/dL (74-106); Potassium 3.9 mmol/L (3.5-5.1); Sodium 145 mmol/L (136-145)
[2024-09-13 06:32] LABS: Aspartate Aminotransferase 12 U/L (13-40); Chloride 109 mmol/L (98-107)
--- NOTE | 2024-09-13 07:15 | ECG ---
[facility] Test Date: 2024-09-12 Test Time: 20:06:03 Pat Name: SOPHIE BORGES Department: ED Room: [address] [place] [address] Gender: F Anthropology Instructor: : 1950 Requested By: TIAN JIMÉNEZ Order Number: [id number] Reading MD: Measurements Intervals [place] Rate: 85 P: 76 MT: 156 QRS: 37 QRSD: 93 T: 52 QT: 376 QTc: 447 Interpretive Statements Sinus rhythm Multiple ventricular premature complexes Minimal ST elevation, anterior leads Baseline wander in lead(s) V5 Please click the below link to view image of tracing.
[2024-09-13 08:00] VITALS: PULSE 85; RESP 12; O2SAT 95
[2024-09-13] MEDS: NIFEdipine ER 30 MG TAB PO SCH (10:21)
[2024-09-13] MEDS: CARVEDILOL 3.125 MG TAB PO SCH (10:22)
[2024-09-13] MEDS: MORPHINE SULFATE INJ 2 MG/ml SYRG IV PRN (15:50)
[2024-09-13] MEDS ORDERED: HYDR-4902 PO (15:53)
[2024-09-13] MEDS ORDERED: ZOFR4T PO (15:55)
[2024-09-13] MEDS ORDERED: NALO4SPR2 (15:55)
[2024-09-13] MEDS ORDERED: PERCOT PO (15:57)
--- NOTE | 2024-09-13 16:03 | DVHDS2 ---
Discharge Summary Date of Admission September 13, 2024 at 00:39 Date of Discharge: September 13, 2024 Labs/Diagnostic Data: Laboratory Results Test 09/13/24 11:54 09/13/24 05:16 09/13/24 02:30 POC Glucose 109 mg/dl (70-106) White Blood Count 7.0 10^3/uL (4.4-10.8) Red Blood Count 3.95 10^6/uL (4.0-5.20) Hemoglobin 11.4 g/dL (12.2-16.2) Hematocrit 34.2 % (36.0-46.0) Mean Corpuscular Volume 86.6 fL (80.0-100.0) Mean Corpuscular Hemoglobin 29.0 pg (28.0-32.0) Mean Corpuscular Hemoglobin Concent 33.4 g/dL (32.0-36.0) Red Cell Distribution Width 15.3 % (11.8-14.3) Platelet Count 196 10^3/uL (140-450) Mean Platelet Volume 8.5 fL (6.9-10.8) Neutrophils (%) (Auto) 78.7 % (37.0-80.0) Lymphocytes (%) (Auto) 10.6 % (10.0-50.0) Monocytes (%) (Auto) 8.7 % (0.0-12.0) Eosinophils (%) (Auto) 1.5 % (0.0-7.0) Basophils (%) (Auto) 0.5 % (0.0-2.0) Neutrophils # (Auto) 5.5 10 ^3/uL (1.6-8.6) Lymphocytes # (Auto) 0.7 10 ^3/uL (0.4-5.4) Monocytes # (Auto) 0.6 10 ^3/uL (0-1.3) Eosinophils # (Auto) 0.1 10 ^3/uL (0-0.8) Basophils # (Auto) 0 10 ^3/uL (0-0.2) Nucleated Red Blood Cells 0.0 % Prothrombin Time 10.9 sec (9.3-11.8) Prothrombin Time INR 1.03 (0.9-1.15) Sodium Level 145 mmol/L (136-145) Potassium Level 3.9 mmol/L (3.5-5.1) Chloride Level 109 mmol/L (98-107) Carbon Dioxide Level 28 mmol/L (20-31) Anion Gap 8 (5-15) Blood Urea Nitrogen 18 mg/dL (9-23) Creatinine 1.12 mg/dL (0.550-1.02) Glomerular Filtration Rate Calc 52 mL/min (>90) BUN/Creatinine Ratio 16.1 (10.0-20.0) Serum Glucose 100 mg/dL (74-106) Calcium Level 10.2 mg/dL (8.7-10.4) Total Bilirubin 0.4 mg/dL (0.2-1.0) Aspartate Amino Transferase (AST) 12 U/L (13-40) Alanine Aminotransferase (ALT) 16 U/L (7-40) Alkaline Phosphatase 88 U/L (46-116) Total Protein 6.0 g/dL (5.7-8.2) Albumin 3.7 g/dL (3.2-4.8) Vitamin D 25-Hydroxy 25.9 ng/mL (30.0-100) Thyroid Stimulating Hormone (TSH) 0.80 uIU/mL (0.55-4.78) Urine Color Colorless (Yellow) Urine Clarity Clear (Clear) Urine pH 6.0 (5.0-9.0) Urine Specific [place] 1.012 (1.001-1.035) Urine Protein Negative (Negative) Urine Ketones Negative (Negative) Urine Blood Negative /uL (Negative) Urine Nitrite Negative (Negative) Urine Bilirubin Negative (Negative) Urine Urobilinogen Normal mg/dL (Negative) Urine Leukocyte Esterase 1+ /uL (Negative) Urine RBC 1 /hpf (0 - 4) Urine Microscopic WBC 11 /HPF (0-5) Urine Squamous Epithelial Cells None seen /hpf (<5) Urine Bacteria None seen /hpf (None Seen) Urine Yeast (Budding) Occasional /hpf (None Urine Glucose Normal mg/dL (Normal) Other Laboratory Tests 09/13/24 05:16 Brief Hx & Hospital Course: 74-year-old female with a known history of diabetes mellitus type 2, hypertension who initially presented to the hospital with status post fall found to have left humerus fracture. Patient was given sling support. Patient does have known history of vaginal cancer currently on chemoradiation. Patient was cleared by Orthopedics to be discharged with a sling support and pain medications with close follow up as an outpatient. Patient is being discharged under stable condition. marketing services rep has been consulted for home health home safety evaluation home physical therapy as well as occupational therapy. Condition at Discharge: Stable Final Diagnosis/Problems List 1. Left humerus fracture status post mechanical fall 2. Hypertension 3. Insulin-dependent diabetes mellitus type 2 4. Vaginal cancer Discharge Disposition: Home with [facility] Services [facility] Discharge Will this Physician continue t: No Discharge Instruct/Medications Diet: Cardiac 2g Na,low cholest Diet comment: 1800 ADA diet Activity: See Comment Activity comment: No driving, no signing legal documents, no playing on heavy machinery while you are on narcotics. Follow Up/Referral: Follow up with the PCP, Orthopedics Dr. Pablito Herrmann in one week Medications: Percocet as prescribed Discharge Statement: "Patient was advised to return to the ER or call 911 if any headaches, dizziness, shortness of breath, chest pain, abdominal pain, bleeding, fevers, or worsening of medical condition. Patient was counseled about treatment plan, medications, possible side effects, patientverbalized understanding. All questions were answered to the best of my ability. This discharge took greater then 30 minutes in planning, reviewing documentation, counseling the patient, and discussing with other team members." ASSESSMENT ASSESSMENT Assessment 1. Left humerus fracture status post mechanical fall 2. Hypertension 3. Insulin-dependent diabetes mellitus type 2 4. Vaginal cancer Date of Service: September 13, 2024 Billing Provider: FLORY SLADE MD Common Visit Codes: NOT BILLABLE FLORY SLADE MD September 13, 2024 16:03
[2024-09-13 16:30] VITALS: PULSE 70; RESP 18; O2SAT 96
[2024-09-13 17:00] VITALS: BP 134/86; PULSE 96; RESP 20; TEMP 97.6; O2SAT 93
[2024-09-13 20:00] VITALS: PULSE 74; RESP 16
[2024-09-13 21:00] VITALS: BP 155/56; PULSE 74; RESP 16; TEMP 97.9; O2SAT 95
[2024-09-13] MEDS: ATORVASTATIN 20 MG TAB PO SCH (21:29)
[2024-09-14 01:00] VITALS: BP 121/60; PULSE 80; RESP 18; TEMP 97.9; O2SAT 92
[2024-09-14 05:00] VITALS: BP 138/66; PULSE 83; RESP 18; TEMP 98; O2SAT 93
[2024-09-14 05:54] LABS: Basophils # (auto) 0 10 ^3/uL (0-0.2); Basophils % (auto) 0.3 % (0.0-2.0); Eosinophils # (auto) 0.2 10 ^3/uL (0-0.8); Eosinophils % (auto) 3.6 % (0.0-7.0); Hematocrit 33.2 % (36.0-46.0); Hemoglobin 11.1 g/dL (12.2-16.2); Lymphocytes # (auto) 0.7 10 ^3/uL (0.4-5.4); Lymphocytes % (auto) 11.1 % (10.0-50.0); Mean Corpuscular Hemoglobin 28.7 pg (28.0-32.0); Mean Corpuscular Hgb Conc. 33.3 g/dL (32.0-36.0); Mean Corpuscular Volume 86.2 fL (80.0-100.0); Monocytes # (auto) 0.5 10 ^3/uL (0-1.3); Monocytes % (auto) 7.9 % (0.0-12.0); Neutrophils % (auto) 77.1 % (37.0-80.0); Platelet Count (auto) 174 10^3/uL (140-450); Red Blood Cells 3.86 10^6/uL (4.0-5.20); Red Cell Distribution Width 15.1 % (11.8-14.3); White Blood Cell 6.5 10^3/uL (4.4-10.8)
[2024-09-14 06:05] LABS: Alanine Aminotransferase 12 U/L (7-40); Albumin 3.6 g/dL (3.2-4.8); Alkaline Phosphatase 77 U/L (46-116); Anion Gap 8 (5-15); BUN/Creatinine Ratio 16.3 (10.0-20.0); Blood Urea Nitrogen 16 mg/dL (9-23); Calcium 9.7 mg/dL (8.7-10.4); Carbon Dioxide 27 mmol/L (20-31); Sodium 144 mmol/L (136-145)
[2024-09-14 06:06] LABS: Bilirubin, Total 0.4 mg/dL (0.2-1.0)
[2024-09-14 06:07] LABS: Aspartate Aminotransferase 9 U/L (13-40); Chloride 109 mmol/L (98-107); Glucose 115 mg/dL (74-106); Total Protein 5.7 g/dL (5.7-8.2)
[2024-09-14] MEDS: PANTOPRAZOLE 40 MG/10 ML VIAL INJ IV SCH (09:36)
[2024-09-14 11:04] VITALS: BP 128/61; PULSE 88; TEMP 36.7
== END 2024-09-14 12:15 | disposition home or self-care (01) | DRG 562 ==
LOC: EDBD 19:54 → ER 19:54 → OVERFLOW 09-13 00:39 → WEST WING 09-13 13:23
PROVIDERS: ADMIT Internal Medicine; ATTEND Internal Medicine
DX: S42.202A Unspecified fracture of upper end of left humerus, initial encounter for closed fracture (principal); J96.00 Acute respiratory failure, unspecified whether with hypoxia or hypercapnia; E11.9 Type 2 diabetes mellitus without complications; E78.5 Hyperlipidemia, unspecified; M47.892 Other spondylosis, cervical region; I10 Essential (primary) hypertension; Z83.3 Family history of diabetes mellitus; Z79.4 Long term (current) use of insulin; Z88.0 Allergy status to penicillin; Z88.1 Allergy status to other antibiotic agents; Z79.82 Long term (current) use of aspirin; Z79.899 Other long term (current) drug therapy; Z92.3 Personal history of irradiation; Z90.710 Acquired absence of both cervix and uterus; Z85.42 Personal history of malignant neoplasm of other parts of uterus; Z85.44 Personal history of malignant neoplasm of other female genital organs; Z79.84 Long term (current) use of oral hypoglycemic drugs; W01.0XXA Fall on same level from slipping, tripping and stumbling without subsequent striking against object, initial encounter; Y93.89 Activity, other specified; Y92.89 Other specified places as the place of occurrence of the external cause; Y99.8 Other external cause status
CPT/HCPCS: 36415; 71045; 72125; 73030; 73080; 73110; 80048; 80053; 81001; 82306; 82962; 84443; 85025; 85610; 86850; 86900; 86901; 87081; 93005; 96374; G0378; J1885; J2470